=== PATIENT | female | born 1975 | race Caucasian/White ===

== ENCOUNTER 2020-03-14 10:36 | Outpatient (CLI) | payer OTHER, SELFPAY ==
--- NOTE | ~2020-03-14 | MR_ITS ---
EXAMINATION: MR ankle RT wo con DATE: 03/14/2020 11:46 INDICATION: Posterior tibial tendinitis. TECHNIQUE: Magnetic resonance imaging (MRI) of the right ankle was performed without intravenous cont rast. Sequences included sagittal PD-weighted FS FSE, sagittal PD-weighted FSE, coronal PD-weighted F S FSE, coronal PD-weighted FSE, axial PD-weighted FS FSE, and axial PD-weighted FSE. COMPARISON: Right foot MRI 01/29/2019 FINDINGS: Medial ankle ligaments: The superficial and deep components of the deltoid ligament are intact. Lateral ankle ligaments: The anterior and posterior talofibular ligaments, calcaneofibular ligament, and anterior and posterio r tibiofibular ligaments are normal. Tendons: There is mild peroneus brevis tendinopathy. The anterior ankle tendons are normal. There is a partial tear of posterior tibial tendon at its distal attachment. There is mild tenosynovitis of posterior t ibial tendon. The Achilles tendon is normal. Plantar fascia: Normal. There is an enthesophyte at the calcaneal attachment. Bones/other: Bone alignment is normal. No fracture. Talar dome is normal. Fluid: There is no joint effusion. IMPRESSION: 1. Partial tear and mild tenosynovitis of posterior tibial tendon. Reviewed, dictated and finalized at location A. ANIC/WELDER
== END 2020-03-14 10:37 | disposition home or self-care (01) ==
LOC: ANHIMG 10:38
PROVIDERS: PCP Internal Medicine; Visit Provider Podiatrist Foot & Ankle Surgery
DX: M76.821 Posterior tibial tendinitis, right leg (principal); S86.811A Strain of other muscle(s) and tendon(s) at lower leg level, right leg, initial encounter
CPT/HCPCS: 73721

== ENCOUNTER → 2020-05-17 16:51 | Outpatient (CLI) | payer OTHER, SELFPAY ==
--- NOTE | ~2020-05-17 | MM_ITS ---
EXAMINATION: MM screening zay BI w [place] HISTORY: . TECHNIQUE: Craniocaudal and mediolateral oblique 3-D tomosynthesis images were obtained and synthetic 2-D images were generated. CAD analysis was submitted and interpreted. COMPARISON: 07/23/2017, 04/13/2016, 10/27/2014 bilateral digital screening mammogram examinations BREAST PARENCHYMAL COMPOSITION: There are scattered areas of fibroglandular density. FINDINGS: There is no evidence of suspicious mass, calcification, or architectural distortion to sugg est malignancy in either breast. There has been no suspicious interval change. IMPRESSION: 1. No mammographic evidence of malignancy. 2. Recommend routine screening mammography in one year. BI-RADS Category 1: Negative Reviewed, dictated and finalized at location A. [employer] P[employer]IATRICIAN
== END ==
PROVIDERS: PCP Internal Medicine; Visit Provider Obstetrics & Gynecology
DX: Z12.31 Encounter for screening mammogram for malignant neoplasm of breast (principal)
CPT/HCPCS: 77063; 77067

== ENCOUNTER 2020-07-07 07:27 | Outpatient (CLI) | payer OTHER, SELFPAY ==
--- NOTE | ~2020-07-07 | US_ITS ---
EXAMINATION: US thyroid EXAM DATE: 07/07/2020 07:53 INDICATION: Goiter. TECHNIQUE: Multiple grayscale and Doppler images of the thyroid were obtained (by a technologist who performed the scan) and subsequently reviewed. Individual nodules and recommendations may be reporte d in accordance with TI-RADS system as designated by the 2017 ACR White Paper TI-RADS committee. The re is no prior study for comparison. FINDINGS: The right thyroid lobe measures 4.0 x 1.6 x 1.3 cm, the left measuring 4.5 x 1.4 x 1.3 cm. Mildly dif fusely heterogeneous thyroid echogenicity with several small nodules. The largest thyroid nodule is in the left thyroid lobe inferiorly measuring 1.0 x 0.9 x 0.7 cm, predo minantly solid (2 points), hypoechoic (2 points), wider than tall, smooth well defined margin, withou t echogenic foci, category TR4 for this nodule. Most likely benign. IMPRESSION: 1. Mild thyromegaly. 2. Several small nodules; recommend one-year follow-up ultrasound. Reviewed, dictated and finalized at location B. METRY TECH
== END 2020-07-07 07:28 | disposition home or self-care (01) ==
PROVIDERS: PCP Internal Medicine; Visit Provider Nurse Practitioner Family
DX: E04.9 Nontoxic goiter, unspecified (principal); E04.2 Nontoxic multinodular goiter
CPT/HCPCS: 76536

== ENCOUNTER 2021-10-21 12:44 | Outpatient (CLI) | payer OTHER, SELFPAY ==
--- NOTE | ~2021-10-21 | US_ITS ---
EXAMINATION: US thyroid DATE: 10/21/2021 13:37 INDICATION: Nontoxic single thyroid nodule TECHNIQUE: Multiple ultrasound images of the thyroid were obtained. COMPARISON: None. FINDINGS: The right thyroid lobe measures 4.1 x 1.6 x 1.5 cm. The left thyroid lobe measures 4.5 x 1.5 x 1.5 c m. 6 mm wider than tall solid hypoechoic nodule with ill-defined margins at the deep right thyroid ( TI-RADS 4, moderately suspicious , FNA if >=1.5 cm, annual followup is >=1 cm). Additional 10 mm red d hypoechoic wider than tall nodule with smooth and ill-defined margins at the inferior left thyroid also TI RADS 4. Diffuse mild heterogeneous echogenicity with coarsened echotexture throughout the thy roid but with normal vascular flow on color Doppler. IMPRESSION: 1. A couple, small TI RADS 4 thyroid nodules, the larger measuring 1 cm for which annual follow-up wo uld be recommended. Reviewed, dictated and finalized at location B. IMPRESSION: 1. A couple, small TI RADS 4 thyroid nodules, the larger measuring 1 cm for whi ch annual follow-up would be recommended.
== END 2021-10-21 12:45 | disposition home or self-care (01) ==
PROVIDERS: PCP Internal Medicine; Visit Provider Nurse Practitioner
DX: E04.2 Nontoxic multinodular goiter (principal)
CPT/HCPCS: 76536

== ENCOUNTER 2022-02-17 00:11 | Day surgery (SDC) | payer OTHER, SELFPAY ==
[2022-02-03 14:08] VITALS: BMI 50.1
[2022-02-17 09:30] LABS: Glucose Point of Care 151 mg/dl (65-105)
[2022-02-17 09:37] VITALS: BP 146/87; PULSE 85; RESP 18; TEMP 36.2; O2SAT 97
--- NOTE | 2022-02-17 09:41 | WPDANESEPPF ---
Anes - Initial Pre Proc Eval Procedure: Operation Date: 02/17/22 10:30 Proposed Procedures p Esophagogastroduodenoscopy - Juan Alberto Raya MD Date/Time: 02/17/22 09:41 Surgeon: Juan Alberto Raya MD Pre Op Diagnosis: dysphagia Patient Data Age: 46 Gender: F Height: 1.68 m Weight: 147.9 kg Last Vital Signs Temp 97.1 F L 02/17/22 09:37 Pulse 85 02/17/22 09:37 Resp 18 02/17/22 09:37 BP 146/87 H 02/17/22 09:37 Pulse Ox 97 02/17/22 09:37 O2 Del Method Room Air 02/17/22 09:37 Allergies Allergy/AdvReac Type Severity Reaction Status Date / Time levofloxacin Allergy Mild Other Verified 02/17/22 09:35 sulfamethoxazole Allergy Mild Other Verified 02/17/22 09:35 trimethoprim Allergy Mild Other Verified 02/17/22 09:35 Home Medications Medication Instructions Recorded Confirmed Type aspirin 81 mg tablet,delayed 81 mg PO DAILY 02/03/22 02/17/22 History release (Adult Low Dose Aspirin) celecoxib 200 mg capsule (Celebrex) 200 mg PO DAILY 02/03/22 02/17/22 History dapagliflozin 10 mg tablet 10 mg PO DAILY 02/03/22 02/17/22 History (Farxiga) glimepiride 4 mg tablet (Amaryl) 8 mg PO DAILY 02/03/22 02/17/22 History hydroxychloroquine 200 mg tablet 400 mg PO DAILY 02/03/22 02/17/22 History (Plaquenil) insulin degludec 200 unit/mL (3 80 unit subcut HS 02/03/22 02/17/22 History mL) subcutaneous pen (Tresiba FlexTouch U-200 insulin) levothyroxine 50 mcg tablet 50 mcg PO DAILY 02/03/22 02/17/22 History (Unithroid) losartan 25 mg tablet (Cozaar) 50 mg PO DAILY 02/03/22 02/17/22 History metformin 500 mg tablet,extended 2,000 mg PO DAILY 02/03/22 02/17/22 History release 24 hr pantoprazole 40 mg tablet,delayed 80 mg PO DAILY 02/03/22 02/17/22 History release rosuvastatin 20 mg tablet 20 mg PO DAILY 02/03/22 02/17/22 History spironolactone 25 mg tablet 100 mg PO DAILY 02/03/22 02/17/22 History Laboratory Tests 02/17/22 09:27 POC Capillary Glucose 151 mg/dl H mg/dl (65-105) Patient hx anesthesia problems: none Family hx anesthesia problems: none Results Review: All pre-operative results and documents have been reviewed as part of the pre-operative evaluation. PMFSH Family History Family History (System 03/10/19 @ 12:30 by Preethi Jackson) Other Depression Diabetes mellitus Family history of alcoholism Family history of attention deficit hyperactivity disorder (ADHD) Family history of blood dyscrasia Family history of cardiovascular disease Family history of obesity Social History Social History (System 03/10/19 @ 12:30 by Preethi Jackson) Smoking status: Never smoker Alcohol intake: current Drinks per week: 2 Substance use: never Substance use type: does not use Living arrangements: with family Spiritual care concerns: No Anes - Eval Final PreProcedure Day of Procedure 02/17/22 09:41 Patient weight: super morbidly obese Heart: regular rate and rhythm Lungs: clear to auscultation Airway: Mallampati scale class III Neurological: alert and oriented Last oral intake: >/= 8 hours ASA classification: IV Emergent: no Anesthetic plan: proceed Anesthesia type and monitoring: general GIVS and standard monitoring Results Review: All pre-operative results and documents have been reviewed as part of the pre-operative evaluation. Informed Consent: The patient's anesthetic plan and its attendant risks and benefits were discussed with the patient/family/POA. Questions were solicited and answers provided to the satisfaction of the patient/family/POA.
[2022-02-17] MEDS: LACTATED RINGERS 1,000 ML 150 ML IV CONT (09:44)
[2022-02-17] MEDS: SIMETHICONE ORAL SUSPENSION 20 MG/0.3 ML 30 ML BOTTLE 0.6 ML IRRIGATION (10:36)
--- NOTE | 2022-02-17 10:38 | PM.HPGS ---
History of Present Illness History of Present Illness Consent: Risks, benefits, and alternatives have been discussed and questions answered. Patient agrees to proceed with procedure. Chief complaint: dysphagia Narrative: Mag Luz is a 46 year old female Complains of difficulty swallowing. She states solid foods will hang up in the mid substernal portion the chest. She does have a long history of acid reflux. She currently treats this with pantoprazole daily. Family history noncontributory. Review of Systems Review of Systems: Review of systems noncontributory. [facility] Family History Family History (System 03/10/19 @ 12:30 by Preethi Jackson) Other Depression Diabetes mellitus Family history of alcoholism Family history of attention deficit hyperactivity disorder (ADHD) Family history of blood dyscrasia Family history of cardiovascular disease Family history of obesity Social History Social History (System 03/10/19 @ 12:30 by Preethi Jackson) Smoking status: Never smoker Alcohol intake: current Drinks per week: 2 Substance use: never Substance use type: does not use Living arrangements: with family Spiritual care concerns: No Meds Home Medications and Allergies Home Medications Medication Instructions Recorded Confirmed Type aspirin 81 mg tablet,delayed 81 mg PO DAILY 02/03/22 02/17/22 History release (Adult Low Dose Aspirin) celecoxib 200 mg capsule (Celebrex) 200 mg PO DAILY 02/03/22 02/17/22 History dapagliflozin 10 mg tablet 10 mg PO DAILY 02/03/22 02/17/22 History (Farxiga) glimepiride 4 mg tablet (Amaryl) 8 mg PO DAILY 02/03/22 02/17/22 History hydroxychloroquine 200 mg tablet 400 mg PO DAILY 02/03/22 02/17/22 History (Plaquenil) insulin degludec 200 unit/mL (3 80 unit subcut HS 02/03/22 02/17/22 History mL) subcutaneous pen (Tresiba FlexTouch U-200 insulin) levothyroxine 50 mcg tablet 50 mcg PO DAILY 02/03/22 02/17/22 History (Unithroid) losartan 25 mg tablet (Cozaar) 50 mg PO DAILY 02/03/22 02/17/22 History metformin 500 mg tablet,extended 2,000 mg PO DAILY 02/03/22 02/17/22 History release 24 hr pantoprazole 40 mg tablet,delayed 80 mg PO DAILY 02/03/22 02/17/22 History release rosuvastatin 20 mg tablet 20 mg PO DAILY 02/03/22 02/17/22 History spironolactone 25 mg tablet 100 mg PO DAILY 02/03/22 02/17/22 History Allergies Allergy/AdvReac Type Severity Reaction Status Date / Time levofloxacin Allergy Mild Other Verified 02/17/22 09:35 sulfamethoxazole Allergy Mild Other Verified 02/17/22 09:35 trimethoprim Allergy Mild Other Verified 02/17/22 09:35 Vital Signs Vital Signs - 24 hr 02/17/22 09:37 Temperature 97.1 F L Pulse Rate 85 Respiratory Rate 18 Blood Pressure 146/87 H Pulse Oximetry 97 Oxygen Delivery Room Air Exam Narrative: Physical exam reveals patient to be alert. Vital signs stable. HEENT exam is unremarkable. Patient is anicteric. Lungs are clear. Heart without murmur. Abdomen is obese. Bowel sounds are present soft nontender with no organomegaly. Assessment and Plan Assessment and plan (1) Dysphagia: Code(s): R13.10 - Dysphagia, unspecified Status: Acute Assessment and Plan: Patient complains of difficulty swallowing. Previously has had a Schatzki's ring. Plan is for EGD assess more thoroughly I understand she has a history of GE reflux currently maintained on pantoprazole. Would recommend pantoprazole 40mg p.o. daily along with anti-reflux measures.
[2022-02-17 10:42] VITALS: BP 136/93; PULSE 97; RESP 22; O2SAT 98
[2022-02-17 10:48] VITALS: BP 142/100; PULSE 93; RESP 19; O2SAT 97
[2022-02-17 10:58] VITALS: BP 145/91; PULSE 88; RESP 19; O2SAT 97
[2022-02-17 11:08] LABS: Glucose Point of Care 132 mg/dl (65-105)
== END 2022-02-17 11:12 | disposition home or self-care (01) ==
PROVIDERS: PCP Internal Medicine; Visit Provider Internal Medicine Gastroenterology
PROC: 0DJ08ZZ Inspection of Upper Intestinal Tract, Via Natural or Artificial Opening Endoscopic (ICD-10-PCS; CPT 43235; principal; 2022-02-17 10:30)
DX: K22.2 Esophageal obstruction (principal); K21.9 Gastro-esophageal reflux disease without esophagitis; Z79.84 Long term (current) use of oral hypoglycemic drugs; Z79.82 Long term (current) use of aspirin; Z79.4 Long term (current) use of insulin; E66.01 Morbid (severe) obesity due to excess calories; Z68.43 Body mass index [BMI] 50.0-59.9, adult
CPT/HCPCS: 43235; 43450; 82948; J2704; J7120

== ENCOUNTER 2022-05-03 16:56 | Outpatient (CLI) | payer OTHER, SELFPAY ==
--- NOTE | ~2022-05-03 | XR_ITS ---
Clinical Indication: Cough PA and lateral views of the chest: Comparison: 03/19/2018 Findings: The lungs are clear, without evidence of focal consolidation or pleural effusion. Cardiome diastinal silhouette is within normal limits. Bones and soft tissues are unremarkable. Impression: Normal chest. Reviewed, dictated and finalized at [facility]. [employer] Impression: Normal chest.
== END 2022-05-03 16:57 | disposition home or self-care (01) ==
PROVIDERS: PCP Internal Medicine; Visit Provider Internal Medicine
DX: R05.9 Cough, unspecified (principal)
CPT/HCPCS: 71046

== ENCOUNTER 2022-07-16 14:07 | Emergency (ER) | payer OTHER, SELFPAY ==
--- NOTE | ~2022-07-16 | XR_ITS ---
EXAMINATION: XR chest 2V Exam Date/Time: 07/16/2022 14:32 CDT HISTORY: WHEEZING, SOB, HX BRONCHITIS Comparison: 05/03/2022. RESULT: Lines, tubes, and devices: None. Lungs and pleura: Multifocal segmental and subsegmental airspace disease in the bilateral lower lung s. Cardiomediastinal silhouette: Stable. Other: No acute osseous or upper abdominal finding. IMPRESSION: Bilateral lower lung airspace disease may represent pneumonia in the appropriate clinical context. Reviewed, dictated and finalized at location K. IMPRESSION: Bilateral lower lung airspace disease may represent pneumonia in the appropriat e clinical context.
[2022-07-16 14:13] VITALS: BP 161/81; PULSE 119; RESP 16; TEMP 37.4; O2SAT 97
[2022-07-16 14:19] VITALS: BP 161/81; PULSE 119; RESP 16; TEMP 37.4; O2SAT 97
--- NOTE | 2022-07-16 14:19 | ED.URI ---
HPI - URI/Sore Throat General Chief Complaint: Upper Respiratory Infection Stated Complaint: fever,shortness or breath Time Seen by Provider: 07/16/22 14:21 Source: patient Mode of arrival: ambulatory Limitations: no limitations History of Present Illness HPI Narrative: 47 y/o female with hx RA, DM, DVT, presented for c/o cough for 5 days. Endorses dizziness with movement, fever, wheezing, and sob with exertion. Temp up to 102 yesterday. Had a severe headache 2 days ago which is improving. Cough is nonproductive. Taking Dayquil/Nyquil, mucinex for symptoms. Took negative covid test at the onset of symptoms. Endorses recent air travel, returned 7 days ago. Denies sinus congestion, n/v/d. Related Data Home Medications Medication Instructions Recorded Confirmed aspirin 81 mg tablet,delayed 81 mg PO DAILY 02/03/22 02/17/22 release (Adult Low Dose Aspirin) celecoxib 200 mg capsule (Celebrex) 200 mg PO DAILY 02/03/22 02/17/22 dapagliflozin 10 mg tablet 10 mg PO DAILY 02/03/22 02/17/22 (Farxiga) glimepiride 4 mg tablet (Amaryl) 8 mg PO DAILY 02/03/22 02/17/22 hydroxychloroquine 200 mg tablet 400 mg PO DAILY 02/03/22 02/17/22 (Plaquenil) insulin degludec 200 unit/mL (3 80 unit subcut HS 02/03/22 02/17/22 mL) subcutaneous pen (Tresiba FlexTouch U-200 insulin) levothyroxine 50 mcg tablet 50 mcg PO DAILY 02/03/22 02/17/22 (Unithroid) losartan 25 mg tablet (Cozaar) 50 mg PO DAILY 02/03/22 02/17/22 metformin 500 mg tablet,extended 2,000 mg PO DAILY 02/03/22 02/17/22 release 24 hr pantoprazole 40 mg tablet,delayed 80 mg PO DAILY 02/03/22 02/17/22 release rosuvastatin 20 mg tablet 20 mg PO DAILY 02/03/22 02/17/22 spironolactone 25 mg tablet 100 mg PO DAILY 02/03/22 02/17/22 Allergies Allergy/AdvReac Type Severity Reaction Status Date / Time levofloxacin Allergy Mild Other Verified 07/16/22 14:14 sulfamethoxazole Allergy Mild Other Verified 07/16/22 14:14 trimethoprim Allergy Mild Other Verified 07/16/22 14:14 Review of Systems Review of Systems: CONSTITUTIONAL: Reportss body aches, fever, chills, sweats. EYES: Denies visual changes, redness, or discharge. ENT: Denies rhinorrhea, congestion, sore throat, or otalgia. CARDIOVASCULAR: Denies chest pain, palpitations, or edema. RESPIRATORY: Reports cough, sob, wheezing. GASTROINTESTINAL: Denies abdominal pain, nausea, vomiting, or diarrhea. SKIN: Denies rash, itching, or wounds. MUSCULOSKELETAL: Denies back pain, joint pain, or myalgia. NEUROLOGIC: Denies numbness, tingling, or weakness. All systems reviewed & are unremarkable except as noted in HPI and below PMFSH Past Medical History Medical History Diabetes DVT (deep venous thrombosis) Factor V deficiency Rheumatoid arthritis Family History Family History Other Depression Diabetes mellitus Family history of alcoholism Family history of attention deficit hyperactivity disorder (ADHD) Family history of blood dyscrasia Family history of cardiovascular disease Family history of obesity Social History Social History Smoking status: Never smoker Alcohol intake: current Drinks per week: 2 Substance use: never Substance use type: does not use Living arrangements: with family Spiritual care concerns: No Comments At time of signature, I have reviewed and agree with nursing past medical, surgical, social and family history unless otherwise noted. Please see nursing chart for further information. There is no relevant family history pertinent to the presenting complaint Exam Narrative: GENERAL: ill-appearing, nontoxic in no acute distress. EYES: EOMI. No redness or drainage. Conjunctivae normal. ENT: Mucous membranes pink and moist. No rhinorrhea. TMs normal bilaterally. Throat normal. Uvula midline. NECK: N
[2022-07-16] MEDS: IPRATROPIUM BR 0.02% INH SOLN 0.5 MG/2.5 ML VIAL INHALATION (14:40)
[2022-07-16] MEDS: ALBUTEROL SULFATE NEB 2.5 MG/3 ML INH INHALATION (14:45)
[2022-07-16 16:10] VITALS: PULSE 118; RESP 21; O2SAT 98
--- NOTE | 2022-07-16 17:15 | PC.NURSE ---
1520- pt completed treatment and wheezing has softened. pt states that she only feels slightly better at present. pt understands that we are still awaiting the official report of cxr from radiologist
== END 2022-07-16 16:10 | disposition home or self-care (01) ==
PROVIDERS: Emergency Provider Nurse Practitioner Family; PCP Internal Medicine
DX: J18.9 Pneumonia, unspecified organism (principal); Z20.822 Contact with and (suspected) exposure to COVID-19; E11.9 Type 2 diabetes mellitus without complications; M06.9 Rheumatoid arthritis, unspecified; D68.51 Activated protein C resistance; Z86.73 Personal history of transient ischemic attack (TIA), and cerebral infarction without residual deficits
CPT/HCPCS: 71046; 87426; 94640; 99213; C9803; G0463

== ENCOUNTER 2022-07-16 16:39 | Inpatient (IN) | payer OTHER, SELFPAY ==
[2022-07-16] VITALS (18 sets, daily range): BP systolic 145–149; BP diastolic 82–98; PULSE 101–118; RESP 16–31; TEMP 37.6–38; O2SAT 95–97; BMI 52.6
--- NOTE | 2022-07-16 16:54 | ECG_ITS ---
Measurements Intervals Ten Sleep Rate: 117 P: 22 [place]: 108 QRS: 47 QRSD: 91 T: 49 QT: 310 QTc: 434 Interpretive Statements SINUS TACHYCARDIA WITH SHORT [place] INTERVAL BASELINE ARTIFACT- I, II, III ABNORMAL ECG NO PREVIOUS ECG AVAILABLE FOR COMPARISON Electronically Signed On 07-16-2022 17:28:42 CDT by Adrian Santiago D.O.
[2022-07-16 17:31] LABS: Basophils Percent Auto 0.2 % (0.2-1.2); Eosinophils Percent Auto 0.2 % (0-4.4); Hematocrit 39.1 % (37.0-47.0); Hemoglobin 12.3 g/dL (12.0-15.0); Immature Granulocyte Absolute 0.01 K/mm3 (0.00-0.031); Immature Granulocyte Percent A 0.2 % (0-0.5); Lymphocytes Absolute Auto 0.61 K/mm3 (0.9-3.2); Lymphocytes Percent Auto 12.9 % (18.3-44.2); Mean Corpuscular HGB Conc 31.5 g/dl (32-36); Mean Corpuscular Volume 79.5 fl (80-100); Mean Platelet Volume 10.9 fl (7.4-10.4); Monocytes Absolute Auto 0.3 K/mm3 (0.1-0.6); Monocytes Percent Auto 5.3 % (2.6-8.5); Neutrophils Absolute Auto 3.8 K/mm3 (1.3-6.7); Neutrophils Percent Auto 81.2 % (45.5-73.1); Platelet Count Result 227 k/mm3 (150-375); Red Blood Count 4.92 M/mm3 (4.2-5.4); White Blood Count 4.7 K/mm3 (4.5-10.0)
[2022-07-16 17:41] LABS: Lactic Acid Reflex 1.1 mmol/L (0.7-2.0)
[2022-07-16 17:44] LABS: Alanine Aminotransferase 22 U/L (6-35); Albumin Level 4.4 g/dL (3.5-5.1); Alkaline Phosphatase 89 U/L (38-126); Anion Gap 10 mmol/L (8-16); Aspartate Amino Transferase 27 U/L (14-36); Bilirubin,Total 0.4 mg/dL (0.2-1.3); Blood Urea Nitrogen 7 mg/dL (7-17); Calcium 8.8 mg/dL (8.4-10.2); Carbon Dioxide 25 mmol/L (22-30); Chloride 100 mmol/L (98-107); Estimated CRCL calculation 166 ml/min; Estimated Glomerular Filt Rate > 60; Glucose 160 mg/dL (65-110); Potassium 3.9 mmol/L (3.4-5.0); Sodium 135 mmol/L (137-145)
--- NOTE | 2022-07-16 17:44 | ED.GENADULT ---
HPI - General Adult General Chief complaint: Shortness of Breath/Dyspnea Stated complaint: pnemonia Time Seen by Provider: 07/16/22 17:31 History of Present Illness HPI narrative: Patient is 47 years old white female came to the emergency room because of fever, and nonproductive cough over the last 5 days. Patient referred to our emergency room from urgent care with a diagnosis of bilateral pneumonia. 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 Last Tylenol was 8 hours ago. Related Data Home Medications Medication Instructions Recorded Confirmed aspirin 81 mg tablet,delayed 81 mg PO DAILY 02/03/22 02/17/22 release (Adult Low Dose Aspirin) celecoxib 200 mg capsule (Celebrex) 200 mg PO DAILY 02/03/22 02/17/22 dapagliflozin 10 mg tablet 10 mg PO DAILY 02/03/22 02/17/22 (Farxiga) glimepiride 4 mg tablet (Amaryl) 8 mg PO DAILY 02/03/22 02/17/22 hydroxychloroquine 200 mg tablet 400 mg PO DAILY 02/03/22 02/17/22 (Plaquenil) insulin degludec 200 unit/mL (3 80 unit subcut HS 02/03/22 02/17/22 mL) subcutaneous pen (Tresiba FlexTouch U-200 insulin) levothyroxine 50 mcg tablet 50 mcg PO DAILY 02/03/22 02/17/22 (Unithroid) losartan 25 mg tablet (Cozaar) 50 mg PO DAILY 02/03/22 02/17/22 metformin 500 mg tablet,extended 2,000 mg PO DAILY 02/03/22 02/17/22 release 24 hr pantoprazole 40 mg tablet,delayed 80 mg PO DAILY 02/03/22 02/17/22 release rosuvastatin 20 mg tablet 20 mg PO DAILY 02/03/22 02/17/22 spironolactone 25 mg tablet 100 mg PO DAILY 02/03/22 02/17/22 Allergies Allergy/AdvReac Type Severity Reaction Status Date / Time levofloxacin Allergy Mild Other Verified 07/16/22 18:09 sulfamethoxazole Allergy Mild Other Verified 07/16/22 18:09 trimethoprim Allergy Mild Other Verified 07/16/22 18:09 Review of Systems Review of Systems: All systems reviewed & are unremarkable except as noted in HPI and below PMFSH Past Medical History Medical History Diabetes DVT (deep venous thrombosis) Factor V deficiency Rheumatoid arthritis Family History Family History Other Depression Diabetes mellitus Family history of alcoholism Family history of attention deficit hyperactivity disorder (ADHD) Family history of blood dyscrasia Family history of cardiovascular disease Family history of obesity Social History Social History Smoking status: Never smoker Alcohol intake: current Drinks per week: 2 Substance use: never Substance use type: does not use Living arrangements: with family Spiritual care concerns: No Exam Narrative: General appearance: Well-developed, well-nourished Skin: Normal color Head: Normocephalic, nontraumatic Eyes: Clear conjunctiva ENT: Oropharynx normal, ears normal, nose normal Neck: Supple, nontender Chest and respiratory: Diffuse rhonchi and wheezing bilaterally Heart: Regular rate/rhythm Abdomen: Soft, nontender, no organomegaly, quiet bowel sounds Vascular: Normal peripheral pulses, normal capillary refill. Musculoskeletal: Normal range of motion, nontender back Neurologic: Alert and oriented ?3, [employer] is normal as tested, no gross motor deficit Course Vital Signs Vital signs: Vital Signs Temperature 37.6 C 07/16/22 16:49 Pulse Rate 118 H 07/16/22 16:49 Respiratory Rate 18 07/16/22 16:49 Blood Pressure 149/91 H 07/16/22 16:49 Pulse Oximetry 97 07/16/22 16:49 Temperature 37.7 C H 07/16/22 18:06 Pulse Rate 118 H 07/16/22 18:10 Respiratory Rate
[2022-07-16 18:12] LABS: CRP 7.3 mg/dL (<1.0)
[2022-07-16 18:16] LABS: Alveolar/Arterial O2 Gradient 35.4 mmHg; Base Excess ABG 1.1 mEq/l (+/-2.0); Fractional Inspired Oxygen 21 %; HCO3 ABG 24.5 mEq/l (22.0-26.0); Oxygen Content ABG 16.1 %vol (16.0-22.0); Oxygen Saturation ABG 95.5 % (95.0-100.0); Oxyhemoglobin 93.5 % THb (90.0-100.0); PO2 ABG 72.4 mmHg (80.0-100.0); PO2 FiO2 Ratio Arterial Blood 3.45 %; Total Hemoglobin 12.2 g/dL (12.0-18.0); pH ABG 7.463 (7.350-7.450)
[2022-07-16 18:18] LABS: Device ROOM AIR; Modified Allen's Test Pass; Site Drawn LEFT RADIAL
--- NOTE | 2022-07-16 19:16 | PC.NURSE ---
Unsuccessful IV attempt. Charge nurse aware, will attempt for another line.
[2022-07-16 19:37] LABS: Influenza A QL RT-PCR Negative (Negative); Influenza B QL RT-PCR Negative (Negative); SARS-CoV-2 RNA PCR Negative
--- NOTE | 2022-07-16 19:54 | PC.NURSE ---
Second set of cultures successful from charge weigher ultrasound IV placement. Will start antibiotics at this time.
--- NOTE | 2022-07-16 20:14 | PC.NURSE ---
Report called to [facility].
--- NOTE | 2022-07-16 20:34 | ADMGEN ---
This patient, Mag Luz, was admitted to Medical Room 349-01. Patient/family oriented to hospital policies and general routines including ID bracelet, bed and alarms, visiting hours, pain management, procedures, bathroom and other care routines, personal items, smoking policy, room service/diet, and visiting hours. Information on how to activate the Rapid Response Team has been discussed. Patient/Family are encouraged to report perceived risks to care and to ask questions if they do not understand what they are told or what they should do.
[2022-07-16] MEDS: ALBUTEROL SULFATE NEB 2.5 MG/3 ML INH INHALATION (21:14)
--- NOTE | 2022-07-16 22:00 | PM.IMHP ---
H&P: HPI History of Present Illness Date/Time: 07/16/22 22:00 Chief Complaint: Fever and cough. Narrative: This is a very pleasant 47-year-old female with insulin-dependent diabetes, rheumatoid arthritis, hypothyroidism, hypertension, dyslipidemia, and history of DVT (heterozygous for factor 5 Leiden) who presented to the emergency department from urgent care for evaluation of fever and cough. Patient provides the following history. She was at a conference in [place] last week and returned home on Sunday in her usual state of health. She started to feel unwell on Sunday with generalized headache, fever to 102? on , nonproductive cough, rattling in the chest, dyspnea on exertion, and nausea.. She has been taking DayQuil, NyQuil, and Mucinex for her symptoms but they linger. She denies significant sinus congestion, sore throat, pleuritic pain, palpitations, vomiting, and significant diarrhea. She was seen in urgent care today and tested negative for COVID. Chest x-ray showed evidence of bilateral pneumonia and given her risk factors she was directed to the emergency department. Pertinent labs include a WBC count of 4.7 and a CRP of 7.3. Due to her multiple comorbidities, she is being admitted for IV antibiotics and monitoring overnight. Review of Systems Review of Systems: Twelve systems were reviewed and are negative except for as per HPI. [facility] Past Medical History Medical History (Updated 07/16/22 @ 23:08 by Omaira Aguiar PA-C) Deep venous thrombosis Attributed to hormone use in the setting of factor 5 Leiden mutation, heterozygous. Factor 5 Leiden mutation, heterozygous Gastroesophageal reflux disease Noreen's disease Hypertension Hypothyroidism Insulin dependent type 2 diabetes mellitus Morbid obesity Polycystic ovarian syndrome Rheumatoid arthritis Surgical History Surgical History (Updated 07/16/22 @ 22:25 by Omaira Aguiar PA-C) History of cardiac radiofrequency ablation History of section Family History Family History Other Depression Diabetes mellitus Family history of alcoholism Family history of attention deficit hyperactivity disorder (ADHD) Family history of blood dyscrasia Family history of cardiovascular disease Family history of obesity Social History Social History (Updated 07/16/22 @ 23:06 by Omaira Aguiar PA-C) Social History: Surrogate medical decision maker: Reza Sumner, spouse. Code status: Full code. Smoking status: Never smoker Alcohol intake: never Drinks per week: 2 Substance use: never Substance use type: does not use Lack of Transportation: No Lack of Food: Never True Current Housing: I Have Housing Concerned About Future Housing: No Difficulty Paying Gas/Electric Bills: No Difficulty Paying for Meds: No Currently Unemployed: No Education: Master's Degree or Higher Difficulty w/ Childcare or Family Care: No Living arrangements: with family Additional living arrangements comments: Lives with spouse and children in [place]. Additional occupation/education comments: [employer]. Spiritual care concerns: No Meds Home Medications and Allergies Home Medications Medication Instructions Recorded Confirmed Type aspirin 81 mg tablet,delayed 81 mg PO DAILY 02/03/22 07/16/22 History release (Adult Low Dose Aspirin) celecoxib 200 mg capsule (Celebrex) 100 mg PO BID 02/03/22 07/16/22 History glimepiride 4 mg tablet (Amaryl) 8 mg PO DAILY 02/03/22 07/16/22 History hydroxychloroquine 200 mg tablet 400 mg PO DAILY 02/03/22 07/16/22 History (Plaquenil) insulin degludec 200 unit/mL (3 80 unit subcut HS 02/03/22 07/16/22 History mL) subcutaneous pen (Tresiba FlexTouch U-200 insulin) levothyroxine 50 mcg tablet 50 mcg PO DAILY 02/03/22 07/16/22 History (Unithroid) losartan 25 mg tablet (Cozaar) 50 mg PO DAILY 02/03/22 07/16/22 H
[2022-07-16 22:10] LABS: Glucose Point of Care 144 mg/dl (65-105)
[2022-07-16] MEDS: SODIUM CHLORIDE 0.9% IV 1,000 ML 125 ML IV CONT (22:12)
[2022-07-17] VITALS (15 sets, daily range): BP systolic 132–155; BP diastolic 78–96; PULSE 91–105; RESP 14–24; TEMP 36.7–39.3; O2SAT 93–97
[2022-07-17] MEDS: ACETAMINOPHEN 325 MG TABLET 650 MG PO (00:49)
[2022-07-17] MEDS: guaiFENesin 12 HR 600 MG TABCR 1200 MG PO ×3 (00:57→20:47)
[2022-07-17] MEDS: ALBUTEROL SULFATE NEB 2.5 MG/3 ML INH INHALATION ×4 (03:23→21:40)
[2022-07-17] MEDS: IPRATROPIUM BR 0.02% INH SOLN 0.5 MG/2.5 ML VIAL INHALATION ×4 (03:23→21:40)
[2022-07-17 05:12] LABS: Hematocrit 35.8 % (37.0-47.0); Hemoglobin 11.1 g/dL (12.0-15.0); Mean Corpuscular Hemoglobin 24.9 pg (26-34); Mean Corpuscular Volume 80.4 fl (80-100); Mean Platelet Volume 10.4 fl (7.4-10.4); Platelet Count Result 197 k/mm3 (150-375); Red Blood Count 4.45 M/mm3 (4.2-5.4); Red Cell Distribution Width 17.1 % (11.5-14.5); White Blood Count 3.3 K/mm3 (4.5-10.0)
[2022-07-17 05:23] LABS: Alanine Aminotransferase 19 U/L (6-35); Alkaline Phosphatase 73 U/L (38-126); Anion Gap 4 mmol/L (8-16); Aspartate Amino Transferase 27 U/L (14-36); Bilirubin,Total 0.5 mg/dL (0.2-1.3); Blood Urea Nitrogen 7 mg/dL (7-17); CRP 8.3 mg/dL (<1.0); Calcium 8.6 mg/dL (8.4-10.2); Carbon Dioxide 29 mmol/L (22-30); Chloride 102 mmol/L (98-107); Estimated CRCL calculation 172 ml/min; Estimated Glomerular Filt Rate > 60; Glucose 203 mg/dL (65-110); Magnesium 1.7 mg/dL (1.6-2.3); Potassium 3.8 mmol/L (3.4-5.0); Sodium 135 mmol/L (137-145)
[2022-07-17] MEDS: LEVOTHYROXINE SODIUM 50 MCG TABLET PO (05:23)
[2022-07-17 06:29] LABS: Procalcitonin 0.1 ng/mL
--- NOTE | 2022-07-17 08:30 | PM.IMPN ---
Progress Note: A&P Assessment and Plan (1) Pneumonia: Code(s): J18.9 - Pneumonia, unspecified organism Status: Acute Assessment and Plan: The patient presented to the emergency department from urgent care for evaluation after she was found to have bilateral pneumonia. Chest x-ray shows bilateral infiltrates representing pneumonia. Low grade fever with low white count at 3.3; she is immunocompromised (insulin-dependent diabetic, rheumatoid arthritis on DMARD). Azithromycin and ceftriaxone have been started Attempt sputum for culture Continue [facility] and at [facility] to help minimize secretions. Check urinary antigens. Duo nebs scheduled. Procalcitonin 0.1 Elevated CRP at 8.3. Not surprising due to patient's rheumatic disease. (2) Insulin dependent type 2 diabetes mellitus: Code(s): E11.9 - Type 2 diabetes mellitus without complications; Z79.4 - assisted (current) use of insulin Status: Acute Assessment and Plan: Initiate sliding scale insulin Accu-Cheks, and hypoglycemic protocol. Check hemoglobin A1c. (3) Rheumatoid arthritis: Code(s): M06.9 - Rheumatoid arthritis, unspecified Status: Chronic Assessment and Plan: After discussing with the patient, will hold hydroxychloroquine for a couple of days. Plan Patient's chronic conditions include rheumatoid arthritis, insulin-dependent diabetes, hypertension, obesity, hypothyroidism. Home medications will be reviewed and resumed as appropriate. Patient is immunocompromise with RA and insulin-dependent diabetes TSH within normal limits Blood pressure stable Subjective Date/time seen: 07/17/22 08:30 Interval history: Patient doing well sitting in the bed. She is still having cough and shortness of breath. Shortness of breath occurs at rest and with activity. Patient was experiencing fevers, chills and body aches but since arriving to hospital for this has improved. She denies chest pain, nausea and vomiting and diarrhea. Patient denies any chronic lung diseases such as asthma /COPD and also denies smoking. Review of Systems Review of Systems: All systems reviewed & are unremarkable except as noted in HPI and below Exam Narrative: GENERAL: Comfortable, no acute distress HENMT: moist mucous membranes EYES: EOM intact b/l NECK: no lymphadenopathy RESPIRATORY: Diffuse crackles and wheezing CARDIO: RRR GI: soft, nontender, bowel sounds present SKIN: no rashes EXTREMITIES: no edema, redness or tenderness Objective Data Vital Signs Vital Signs: Vital Signs - 24 hr 07/16/22 16:49 07/16/22 18:06 07/16/22 18:10 Temperature 99.6 F 99.8 F H Pulse Rate 118 H 115 H 118 H Respiratory Rate 18 18 Blood Pressure 149/91 H Pulse Oximetry 97 96 Oxygen Delivery Room Air 07/16/22 18:41 07/16/22 18:45 07/16/22 19:03 Temperature Pulse Rate 115 H 115 H Respiratory Rate 16 17 Blood Pressure Pulse Oximetry 97 97 96 Oxygen Delivery 07/16/22 19:15 07/16/22 19:32 07/16/22 19:49 Temperature Pulse Rate 118 H 117 H 114 H Respiratory Rate 16 31 H 24 H Blood Pressure Pulse Oximetry 96 96 Oxygen Delivery 07/16/22 19:50 07/16/22 20:41 07/16/22 21:13 Temperature Pulse Rate 114 H 103 H Respiratory Rate 18 20 Blood Pressure 149/98 H Pulse Oximetry 96 95 Oxygen Delivery Room Air 07/16/22 21:19 07/16/22 21:31 07/16/22 21:26 Temperature Pulse Rate 101 H 107 H Respiratory Rate 20 20 Blood Pressure 145/82 H Pulse Oximetry Oxygen Delivery 07/16/22 21:39 07/16/22 19:51 07/16/22 20:00 Temperature 100.4 F H Pulse Rate 116 H 116 H Respiratory Rate 23 H 21 H Blood Pressure Pulse Oximetry 96 95 Oxygen Delivery 07/16/22 20:15 07/17/22 00:37 07/17/22 00:49 Temperature 102.7 F H 101.7 F H Pulse Rate 113 H Respiratory Rate 17 Blood Pressure Pulse Oximetry 97 Oxygen Delivery
[2022-07-17 08:53] LABS: Glucose Point of Care 189 mg/dl (65-105)
[2022-07-17] MEDS: ASPIRIN 81 MG ENTERIC TABLET PO (09:56)
[2022-07-17] MEDS: CELECOXIB 100 MG CAPSULE PO ×2 (09:57→16:51)
[2022-07-17] MEDS: GLIMEPIRIDE 2 MG TABLET 8 MG PO (09:57)
[2022-07-17] MEDS: LOSARTAN POTASSIUM 25 MG TABLET 50 MG PO (09:57)
[2022-07-17] MEDS: ENOXAPARIN 40 MG/0.4 ML SYRINGE SUB-Q (09:57)
[2022-07-17] MEDS: SPIRONOLACTONE 25 MG TABLET 50 MG PO (09:57)
[2022-07-17] MEDS: PANTOPRAZOLE 40 MG TABLET PO ×2 (09:57→20:47)
[2022-07-17 12:27] LABS: Glucose Point of Care 214 mg/dl (65-105)
[2022-07-17] MEDS: INSULIN ASPART (*BKC) 100 UNITS/ML SUB-Q ×2 (12:47→18:11)
[2022-07-17 16:58] LABS: Glucose Point of Care 225 mg/dl (65-105)
[2022-07-17] MEDS: ROSUVASTATIN 10 MG TABLET 20 MG PO (20:47)
[2022-07-17] MEDS: MELATONIN 5 MG TABLET 10 MG PO (20:47)
[2022-07-17] MEDS: INSULIN GLARGINE (*BKC) 100 UNITS/ML 40 UNITS SUB-Q (20:57)
[2022-07-17 20:59] LABS: Glucose Point of Care 300 mg/dl (65-105)
[2022-07-18] VITALS (12 sets, daily range): BP systolic 133–139; BP diastolic 60–72; PULSE 89–106; RESP 17–24; TEMP 36.1–36.6; O2SAT 91–94
[2022-07-18] MEDS: IPRATROPIUM BR 0.02% INH SOLN 0.5 MG/2.5 ML VIAL INHALATION ×4 (03:00→19:41)
[2022-07-18] MEDS: ALBUTEROL SULFATE NEB 2.5 MG/3 ML INH INHALATION ×4 (03:00→19:41)
[2022-07-18 05:47] LABS: Basophils Percent Auto 0.5 % (0.2-1.2); Hematocrit 34.8 % (37.0-47.0); Hemoglobin 10.6 g/dL (12.0-15.0); Immature Granulocyte Absolute 0.03 K/mm3 (0.00-0.031); Immature Granulocyte Percent A 0.8 % (0-0.5); Lymphocytes Absolute Auto 0.95 K/mm3 (0.9-3.2); Lymphocytes Percent Auto 24.2 % (18.3-44.2); Mean Corpuscular HGB Conc 30.5 g/dl (32-36); Mean Corpuscular Hemoglobin 24.8 pg (26-34); Mean Corpuscular Volume 81.3 fl (80-100); Mean Platelet Volume 10.6 fl (7.4-10.4); Monocytes Absolute Auto 0.3 K/mm3 (0.1-0.6); Monocytes Percent Auto 8.4 % (2.6-8.5); Neutrophils Absolute Auto 2.6 K/mm3 (1.3-6.7); Neutrophils Percent Auto 65.1 % (45.5-73.1); Platelet Count Result 192 k/mm3 (150-375); Red Blood Count 4.28 M/mm3 (4.2-5.4); Red Cell Distribution Width 17.1 % (11.5-14.5); White Blood Count 3.9 K/mm3 (4.5-10.0)
[2022-07-18 06:07] LABS: Alanine Aminotransferase 19 U/L (6-35); Albumin Level 3.8 g/dL (3.5-5.1); Alkaline Phosphatase 74 U/L (38-126); Anion Gap 6 mmol/L (8-16); Aspartate Amino Transferase 28 U/L (14-36); Bilirubin,Total 0.4 mg/dL (0.2-1.3); Blood Urea Nitrogen 5 mg/dL (7-17); CRP 7.6 mg/dL (<1.0); Calcium 8.2 mg/dL (8.4-10.2); Carbon Dioxide 27 mmol/L (22-30); Chloride 103 mmol/L (98-107); Estimated CRCL calculation 209 ml/min; Estimated Glomerular Filt Rate > 60; Glucose 226 mg/dL (65-110); Potassium 3.8 mmol/L (3.4-5.0); Sodium 136 mmol/L (137-145)
[2022-07-18] MEDS: LEVOTHYROXINE SODIUM 50 MCG TABLET PO (06:22)
[2022-07-18 08:25] LABS: Glucose Point of Care 225 mg/dl (65-105)
[2022-07-18] MEDS: CELECOXIB 100 MG CAPSULE PO ×2 (08:31→17:44)
[2022-07-18] MEDS: ENOXAPARIN 40 MG/0.4 ML SYRINGE SUB-Q (08:31)
[2022-07-18] MEDS: ASPIRIN 81 MG ENTERIC TABLET PO (08:31)
[2022-07-18] MEDS: GLIMEPIRIDE 2 MG TABLET 8 MG PO (08:31)
[2022-07-18] MEDS: guaiFENesin 12 HR 600 MG TABCR 1200 MG PO ×2 (08:31→20:51)
[2022-07-18] MEDS: PANTOPRAZOLE 40 MG TABLET PO ×2 (08:32→20:51)
[2022-07-18] MEDS: LOSARTAN POTASSIUM 25 MG TABLET 50 MG PO (08:32)
[2022-07-18] MEDS: SPIRONOLACTONE 25 MG TABLET 50 MG PO (08:32)
[2022-07-18] MEDS: INSULIN ASPART (*BKC) 100 UNITS/ML SUB-Q ×2 (08:42→12:36)
[2022-07-18 11:56] LABS: Glucose Point of Care 297 mg/dl (65-105)
--- NOTE | 2022-07-18 13:55 | PM.IMPN ---
Progress Note: A&P Assessment and Plan (1) Pneumonia: Code(s): J18.9 - Pneumonia, unspecified organism Status: Acute Assessment and Plan: The patient presented to the emergency department from urgent care for evaluation after she was found to have bilateral pneumonia. Chest x-ray shows bilateral infiltrates representing pneumonia. Low grade fever with low white count at 3.3; she is immunocompromised (insulin-dependent diabetic, rheumatoid arthritis on DMARD). Azithromycin and ceftriaxone have been started Attempt sputum for culture Continue [facility] and at [facility] to help minimize secretions. Check urinary antigens. Duo nebs scheduled. Procalcitonin 0.1 Elevated CRP at 8.3. Not surprising due to patient's rheumatic disease. (2) Insulin dependent type 2 diabetes mellitus: Code(s): E11.9 - Type 2 diabetes mellitus without complications; Z79.4 - nursing home (current) use of insulin Status: Acute Assessment and Plan: Initiate sliding scale insulin Accu-Cheks, and hypoglycemic protocol. Check hemoglobin A1c. (3) Rheumatoid arthritis: Code(s): M06.9 - Rheumatoid arthritis, unspecified Status: Chronic Assessment and Plan: After discussing with the patient, will hold hydroxychloroquine for a couple of days. Plan Patient's chronic conditions include rheumatoid arthritis, insulin-dependent diabetes, hypertension, obesity, hypothyroidism. Home medications will be reviewed and resumed as appropriate. Patient is immunocompromise with RA and insulin-dependent diabetes TSH within normal limits Blood pressure stable Subjective Date/time seen: 07/18/22 13:55 Interval history: Patient is feeling slightly better than yesterday. Patient's loved one at bedside. She still struggles with cough and shortness of breath. Her labs are looking much better today although she still appears pretty sick. Patient really wants to go home but due to her cough, lingering shortness of breath and coarse breath sounds I believe it is best for her to receive 1 more day of IV antibiotics before she is discharged. Patient is agreeing upon this plan. Patient no longer having fever or requiring fever reducing medication. Review of Systems Review of Systems: All systems reviewed & are unremarkable except as noted in HPI and below Exam Narrative: GENERAL: Comfortable, no acute distress HENMT: moist mucous membranes EYES: EOM intact b/l NECK: no lymphadenopathy RESPIRATORY: Diffuse crackles and wheezing CARDIO: RRR GI: soft, nontender, bowel sounds present SKIN: no rashes EXTREMITIES: no edema, redness or tenderness Objective Data Vital Signs Vital Signs: Vital Signs - 24 hr 07/17/22 14:00 07/17/22 21:23 07/17/22 21:42 Temperature 98.6 F 98.1 F Pulse Rate 100 105 H 94 Respiratory Rate 14 20 19 Blood Pressure 148/82 H 132/96 H Pulse Oximetry 97 94 Oxygen Delivery 07/17/22 20:00 07/18/22 03:01 07/18/22 03:12 Temperature Pulse Rate 94 89 92 Respiratory Rate 19 20 20 Blood Pressure Pulse Oximetry 94 Oxygen Delivery Room Air 07/18/22 05:22 07/18/22 08:14 07/18/22 08:10 Temperature 97.8 F Pulse Rate 98 93 Respiratory Rate 17 24 H Blood Pressure 139/72 Pulse Oximetry 92 94 Oxygen Delivery Room Air 07/18/22 08:26 07/18/22 08:00 Temperature Pulse Rate 94 Respiratory Rate 22 H Blood Pressure Pulse Oximetry Oxygen Delivery Room Air Intake/Output Intake/Output: Intake & Output 07/15/22 07/16/22 07/17/22 07/18/22 23:59 23:59 23:59 23:59 Intake Total 50 1870 1430 Output Total 1300 3600 Balance 50 570 -2170 Meds/Results Medications: Active Medications Generic Name Dose Route Start Last Admin Trade Name Freq PRN Reason Stop Dose Admin Acetaminophen 650 mg 07/16/22 22:27 07/17/22 00:49 Acetaminophen 325 Mg Tablet PO 650 mg Q6H PRN Administration Mild Pain (1
[2022-07-18] MEDS: ACETAMINOPHEN 325 MG TABLET 650 MG PO (15:14)
[2022-07-18 17:09] LABS: Glucose Point of Care 193 mg/dl (65-105)
[2022-07-18] MEDS: MELATONIN 5 MG TABLET 10 MG PO (20:52)
[2022-07-18 20:59] LABS: Glucose Point of Care 262 mg/dl (65-105)
[2022-07-18] MEDS: INSULIN GLARGINE (LANTUS) 1,000 UNITS/10 ML VIAL 80 UNITS SUB-Q (21:28)
[2022-07-19] VITALS (14 sets, daily range): BP systolic 127–150; BP diastolic 75–84; PULSE 85–105; RESP 16–22; TEMP 36.2–36.6; O2SAT 91–97
[2022-07-19] MEDS: IPRATROPIUM BR 0.02% INH SOLN 0.5 MG/2.5 ML VIAL INHALATION ×4 (03:06→22:20)
[2022-07-19] MEDS: ALBUTEROL SULFATE NEB 2.5 MG/3 ML INH INHALATION ×4 (03:06→22:21)
[2022-07-19] MEDS: LEVOTHYROXINE SODIUM 50 MCG TABLET PO (05:54)
[2022-07-19 05:56] LABS: Basophils Percent Auto 0.5 % (0.2-1.2); Eosinophils Absolute Auto 0.1 K/mm3 (0-0.3); Eosinophils Percent Auto 1.7 % (0-4.4); Hematocrit 34.5 % (37.0-47.0); Hemoglobin 10.7 g/dL (12.0-15.0); Immature Granulocyte Absolute 0.03 K/mm3 (0.00-0.031); Immature Granulocyte Percent A 0.7 % (0-0.5); Lymphocytes Absolute Auto 1.44 K/mm3 (0.9-3.2); Lymphocytes Percent Auto 35.2 % (18.3-44.2); Mean Corpuscular Hemoglobin 25.2 pg (26-34); Mean Corpuscular Volume 81.4 fl (80-100); Mean Platelet Volume 10.7 fl (7.4-10.4); Monocytes Absolute Auto 0.3 K/mm3 (0.1-0.6); Monocytes Percent Auto 7.1 % (2.6-8.5); Neutrophils Absolute Auto 2.2 K/mm3 (1.3-6.7); Neutrophils Percent Auto 54.8 % (45.5-73.1); Platelet Count Result 196 k/mm3 (150-375); Red Blood Count 4.24 M/mm3 (4.2-5.4); Red Cell Distribution Width 17.1 % (11.5-14.5); White Blood Count 4.1 K/mm3 (4.5-10.0)
[2022-07-19 06:15] LABS: Alanine Aminotransferase 21 U/L (6-35); Albumin Level 3.7 g/dL (3.5-5.1); Alkaline Phosphatase 74 U/L (38-126); Anion Gap 7 mmol/L (8-16); Aspartate Amino Transferase 29 U/L (14-36); Bilirubin,Total 0.4 mg/dL (0.2-1.3); Blood Urea Nitrogen 5 mg/dL (7-17); Calcium 8.5 mg/dL (8.4-10.2); Carbon Dioxide 26 mmol/L (22-30); Chloride 103 mmol/L (98-107); Estimated CRCL calculation 209 ml/min; Estimated Glomerular Filt Rate > 60; Glucose 188 mg/dL (65-110); Potassium 3.6 mmol/L (3.4-5.0); Sodium 136 mmol/L (137-145)
[2022-07-19 07:33] LABS: Anisocytosis 1+ (NORMAL); Atypical Lymphocytes Present; Ovalocytes 1+ (NORMAL); Platelet Estimate Adequate (Adequate); Schistocytes None Seen (NORMAL)
[2022-07-19 08:54] LABS: Glucose Point of Care 200 mg/dl (65-105)
[2022-07-19] MEDS: CELECOXIB 100 MG CAPSULE PO ×2 (09:14→17:42)
[2022-07-19] MEDS: SPIRONOLACTONE 25 MG TABLET 50 MG PO (09:14)
[2022-07-19] MEDS: ASPIRIN 81 MG ENTERIC TABLET PO (09:14)
[2022-07-19] MEDS: LOSARTAN POTASSIUM 25 MG TABLET 50 MG PO (09:14)
[2022-07-19] MEDS: ENOXAPARIN 40 MG/0.4 ML SYRINGE SUB-Q (09:14)
[2022-07-19] MEDS: guaiFENesin 12 HR 600 MG TABCR 1200 MG PO ×2 (09:14→20:34)
[2022-07-19] MEDS: GLIMEPIRIDE 2 MG TABLET 8 MG PO (09:14)
[2022-07-19] MEDS: PANTOPRAZOLE 40 MG TABLET PO ×2 (09:14→20:34)
[2022-07-19 12:54] LABS: Glucose Point of Care 209 mg/dl (65-105)
[2022-07-19] MEDS: INSULIN ASPART (*BKC) 100 UNITS/ML SUB-Q (13:02)
--- NOTE | 2022-07-19 13:22 | PM.IMPN ---
Progress Note: A&P Assessment and Plan (1) Pneumonia: Qualifiers: Pneumonia type: due to unspecified organism Laterality: bilateral Lung location: lower lobe of lung Qualified Code(s): J18.9 - Pneumonia, unspecified organism Code(s): J18.9 - Pneumonia, unspecified organism Status: Acute Assessment and Plan: The patient presented to the emergency department from urgent care for evaluation after she was found to have bilateral pneumonia. Chest x-ray shows bilateral infiltrates representing pneumonia. Low grade fever with low white count at 3.3; she is immunocompromised (insulin-dependent diabetic, rheumatoid arthritis on DMARD). Azithromycin and ceftriaxone, 1st dose given 07/16 Attempt sputum for culture Continue Mucinex and at [facility] to help minimize secretions. urinary antigens pending Duo nebs scheduled. Procalcitonin 0.1 Elevated CRP at 8.3. May also be due to rheumatoid arthritis Trend CBC and repeat chest x-ray in the morning May have a component of acute bronchitis. Will check RSV PCR (2) Insulin dependent type 2 diabetes mellitus: Code(s): E11.9 - Type 2 diabetes mellitus without complications; Z79.4 - [facility] (current) use of insulin Status: Acute Assessment and Plan: Initiate sliding scale insulin Accu-Cheks, and hypoglycemic protocol. hemoglobin A1c 8% Continue long-acting insulin Lantus 80 units at bedtime, Tresiba is not on formulary at our facility. Continue glimepiride. Hold metformin while inpatient (3) Rheumatoid arthritis: Code(s): M06.9 - Rheumatoid arthritis, unspecified Status: Chronic Assessment and Plan: After discussing with the patient, will hold hydroxychloroquine for a couple of days. (4) Hypothyroidism: Code(s): E03.9 - Hypothyroidism, unspecified Status: Chronic Assessment and Plan: Continue levothyroxine (5) Factor 5 Leiden mutation, heterozygous: Code(s): D68.51 - Activated protein C resistance Status: Chronic Assessment and Plan: Left DVT 2006. Patient had been treated with Eliquis up to 2-3 years ago and then transitioned to aspirin is followed by Hematology outpatient. Currently on Lovenox for DVT prophylaxis and baby aspirin continued (6) Polycystic ovarian syndrome: Code(s): E28.2 - Polycystic ovarian syndrome Status: Chronic Assessment and Plan: Continues spironolactone and finerenone Monitor renal function Plan Code status: Full code Disposition patient is from home. Diet consistent carb Antibiotic day: 4 of 7 Time Spent With Patient Time with patient: 25 - 35 minutes Subjective Date/time seen: 07/19/22 13:22 Interval history: She still c/o shortness of breath with exertion, pleuritic chest pain, right upper abdomen pain, and minimal sputum. No fevers overnight. Review of Systems Review of Systems: All systems reviewed & are unremarkable except as noted in HPI and below Exam Narrative: GENERAL: Comfortable, no acute distress HEENT: Normocephalic, pupils equal and round, EOM intact, moist mucous membranes, oropharynx unremarkable and tonsils not visualized NECK: Supple without no lymphadenopathy RESPIRATORY: Respirations shallow and nonlabored rest, coarse lung sounds in all dodd with inspiratory and expiratory wheezing appreciated. CARDIO: Normal S1-S2 regular rate and rhythm. No murmurs gallops or rubs GI: soft, obese, tender right upper quadrant right rib 9-10 region, bowel sounds present. No guarding SKIN: no rashes or open wounds. No diaphoresis. Warm and dry EXTREMITIES: no edema, redness or tenderness. Grossly normal range of motion all extremities. Radial and dorsalis pedis pulses +2 bilaterally Objective Data Vital Signs Vital Signs: Vital Signs - 24 hr 07/18/22 14:45 07/18/22 14:59 07/18/22 15:43 Temperature 96.9 F L Pulse Rate 91 94 106 H Respiratory Rate 20 20 18 Blood
[2022-07-19 17:36] LABS: Glucose Point of Care 183 mg/dl (65-105)
[2022-07-19] MEDS: LIDOCAINE 5% PATCH 1 PATCH TRANSDERM (17:42)
[2022-07-19 18:40] LABS: Pneumococcal Antigen Urine Not Detected (Not Detected)
[2022-07-19 20:24] LABS: RSV RNA, RT-PCR Negative (Negative)
[2022-07-19] MEDS: MELATONIN 5 MG TABLET 10 MG PO (20:34)
[2022-07-19] MEDS: INSULIN GLARGINE (LANTUS) 1,000 UNITS/10 ML VIAL 80 UNITS SUB-Q (20:43)
[2022-07-19 21:40] LABS: Glucose Point of Care 220 mg/dl (65-105)
[2022-07-20] MEDS: ALBUTEROL SULFATE NEB 2.5 MG/3 ML INH INHALATION ×2 (02:39→07:58)
[2022-07-20 02:40] VITALS: PULSE 84; RESP 18
[2022-07-20] MEDS: IPRATROPIUM BR 0.02% INH SOLN 0.5 MG/2.5 ML VIAL INHALATION ×2 (02:40→07:58)
[2022-07-20 02:46] VITALS: PULSE 86; RESP 18
[2022-07-20 04:15] VITALS: BP 130/75; PULSE 90; RESP 16; TEMP 36.5; O2SAT 96
[2022-07-20] MEDS: LEVOTHYROXINE SODIUM 50 MCG TABLET PO (05:53)
[2022-07-20 06:41] LABS: Basophils Percent Auto 0.5 % (0.2-1.2); Eosinophils Absolute Auto 0.1 K/mm3 (0-0.3); Eosinophils Percent Auto 2.3 % (0-4.4); Hematocrit 34.4 % (37.0-47.0); Hemoglobin 10.8 g/dL (12.0-15.0); Immature Granulocyte Absolute 0.05 K/mm3 (0.00-0.031); Immature Granulocyte Percent A 1.1 % (0-0.5); Lymphocytes Percent Auto 36.8 % (18.3-44.2); Mean Corpuscular HGB Conc 31.4 g/dl (32-36); Mean Corpuscular Hemoglobin 25.3 pg (26-34); Mean Corpuscular Volume 80.6 fl (80-100); Mean Platelet Volume 10.2 fl (7.4-10.4); Monocytes Absolute Auto 0.4 K/mm3 (0.1-0.6); Neutrophils Absolute Auto 2.2 K/mm3 (1.3-6.7); Neutrophils Percent Auto 51.3 % (45.5-73.1); Platelet Count Result 199 k/mm3 (150-375); Red Blood Count 4.27 M/mm3 (4.2-5.4); Red Cell Distribution Width 16.8 % (11.5-14.5); White Blood Count 4.4 K/mm3 (4.5-10.0)
[2022-07-20 06:59] LABS: Alanine Aminotransferase 23 U/L (6-35); Albumin Level 3.7 g/dL (3.5-5.1); Alkaline Phosphatase 75 U/L (38-126); Anion Gap 6 mmol/L (8-16); Aspartate Amino Transferase 31 U/L (14-36); Bilirubin,Total 0.4 mg/dL (0.2-1.3); Blood Urea Nitrogen 6 mg/dL (7-17); CRP 3.4 mg/dL (<1.0); Calcium 8.3 mg/dL (8.4-10.2); Carbon Dioxide 27 mmol/L (22-30); Chloride 103 mmol/L (98-107); Estimated CRCL calculation 208 ml/min; Estimated Glomerular Filt Rate > 60; Glucose 214 mg/dL (65-110); Potassium 3.9 mmol/L (3.4-5.0); Sodium 136 mmol/L (137-145)
[2022-07-20 07:44] LABS: Procalcitonin 0.1 ng/mL
[2022-07-20 07:58] VITALS: PULSE 92; RESP 18; O2SAT 96
[2022-07-20 08:16] VITALS: PULSE 90; RESP 18
[2022-07-20 08:32] LABS: Glucose Point of Care 222 mg/dl (65-105)
[2022-07-20] MEDS: guaiFENesin 12 HR 600 MG TABCR 1200 MG PO (08:46)
[2022-07-20] MEDS: metFORMIN HCL 500 MG TABLET 1000 MG PO (08:46)
[2022-07-20] MEDS: SPIRONOLACTONE 25 MG TABLET 50 MG PO (08:46)
[2022-07-20] MEDS: LOSARTAN POTASSIUM 25 MG TABLET 50 MG PO (08:46)
[2022-07-20] MEDS: ENOXAPARIN 40 MG/0.4 ML SYRINGE SUB-Q (08:47)
[2022-07-20] MEDS: CELECOXIB 100 MG CAPSULE PO (08:47)
[2022-07-20] MEDS: GLIMEPIRIDE 2 MG TABLET 8 MG PO (08:47)
[2022-07-20] MEDS: ASPIRIN 81 MG ENTERIC TABLET PO (08:47)
[2022-07-20] MEDS: PANTOPRAZOLE 40 MG TABLET PO (08:47)
[2022-07-20] MEDS: LIDOCAINE 5% PATCH 1 PATCH TRANSDERM (08:49)
[2022-07-20] MEDS: INSULIN ASPART (*BKC) 100 UNITS/ML SUB-Q (08:50)
--- NOTE | 2022-07-20 10:11 | P.DS_ITS ---
DS: Admitting Diagnosis Discharge Date 07/20/2022 Admitting Diagnosis Pneumonia, unspecified organism Type 2 diabetes mellitus without complications Essential (primary) hypertension Rheumatoid arthritis, unspecified Immunodeficiency, unspecified DS: Discharge Diagnosis Discharge Diagnosis (1) Pneumonia: Qualifiers: Laterality: bilateral Lung location: lower lobe of lung Pneumonia type: due to unspecified organism Qualified Code(s): J18.9 - Pneumonia, uns pecified organism Code(s): J18.9 - Pneumonia, unspecified organism Status: Acute Assessment and Plan: The patient presented to the emergency department from urgent care for evaluation after she was found to have bilateral pneumonia. * Chest x-ray shows bilateral infiltrates * Patient with low grade fever, low white count at 3.3; she is immunocompromised (insulin-dependent diabetic, rheumatoid arthritis on DMARD). * Treated with Azithromycin and ceftriaxone, 1st dose given 07/16 * Attempt sputum for culture with results showing mixed tang * Treated with Mucinex and at [facility] to help minimize secretions. * Legionella and pneumococcal urine antigens negative. mycoplasma pneumo not elevated. * Influenza A/B, RSV and covid19 negative. * Scheduled Duonebs scheduled Q6 hours. Discharged on albuterol MDI. * Procalcitonin 0.1 * Elevated CRP at 8.3 and repeat CRP improved 3.4 * Patient completed 5 days of azithromycin IV/p.o. With last dose 07/20/2022. * Patient transitioned from Rocephin IV (4 doses given) to cefuroxime 500 mg p.o. b.i.d. to be continued for 6 more days. Extended antibiotic course was given due to patient's immunocompromised state and concurrent use of prednisone. Patient does have anaphylaxis allergy to Levaquin. * Patient with spO2 at rest and ambulating 95% RA (2) Acute bronchitis: Code(s): J20.9 - Acute bronchitis, unspecified Status: Acute Assessment and Plan: Patient with notable wheezing somewhat improved with breathing treatments however patient continued to have some shortness of breath with activity. * trial prednisone 40 mg p.o. daily x5 days, 1st dose 07/20/22. Discussed potential complications with patient such as lowered immune system that can contribute to infections and elevated blood glucose levels. Patient would like to proceed with a short course of steroids. * Patient has albuterol MDI previously prescribed for respiratory infections. This is still full with significant number of puffs available. Spacer was supplied. * Patient was instructed on use as needed for shortness of breath or wheezing. * P.r.n. Tessalon Perles given at discharge. (3) Insulin dependent type 2 diabetes mellitus: Code(s): E11.9 - Type 2 diabetes mellitus without complications; Z79.4 - terminal manager (current) use of insulin Status: Acute Assessment and Plan: Initiate sliding scale insulin, Accu-Cheks, and hypoglycemic protocol. * hemoglobin A1c 8% * Continue long-acting insulin Lantus 80 units at bedtime, Tresiba is not on formulary at our facility. * Continued glimepiride. * Resumed metformin while inpatient (4) Rheumatoid arthritis: Qualifiers: Rheumatoid arthritis location: unspecified site Rheumatoid factor presence: unspecified presence Qualified Code(s): M06.9 - Rheumatoid arthritis, unspecified Code(s): M06.9 - Rheumatoid arthritis, unspecified Status: Chronic Assessment and Plan: hydroxychloroquine held while receiving antibiotics (5) Hypothyroidism: Qualifiers: Hypothyroidism type: acqu
--- NOTE | 2022-07-20 10:11 | PM.DS ---
DS: Admitting Diagnosis Discharge Date 07/20/2022 Admitting Diagnosis Pneumonia, unspecified organism Type 2 diabetes mellitus without complications Essential (primary) hypertension Rheumatoid arthritis, unspecified Immunodeficiency, unspecified DS: Discharge Diagnosis Discharge Diagnosis (1) Pneumonia: Qualifiers: Laterality: bilateral Lung location: lower lobe of lung Pneumonia type: due to unspecified organism Qualified Code(s): J18.9 - Pneumonia, unspecified organism Code(s): J18.9 - Pneumonia, unspecified organism Status: Acute Assessment and Plan: The patient presented to the emergency department from urgent care for evaluation after she was found to have bilateral pneumonia. Chest x-ray shows bilateral infiltrates Patient with low grade fever, low white count at 3.3; she is immunocompromised (insulin-dependent diabetic, rheumatoid arthritis on DMARD). Treated with Azithromycin and ceftriaxone, 1st dose given 07/16 Attempt sputum for culture with results showing mixed tang Treated with Mucinex and at [facility] to help minimize secretions. Legionella and pneumococcal urine antigens negative. mycoplasma pneumo not elevated. Influenza A/B, RSV and covid19 negative. Scheduled Duonebs scheduled Q6 hours. Discharged on albuterol MDI. Procalcitonin 0.1 Elevated CRP at 8.3 and repeat CRP improved 3.4 Patient completed 5 days of azithromycin IV/p.o. With last dose 07/20/2022. Patient transitioned from Rocephin IV (4 doses given) to cefuroxime 500 mg p.o. b.i.d. to be continued for 6 more days. Extended antibiotic course was given due to patient's immunocompromised state and concurrent use of prednisone. Patient does have anaphylaxis allergy to Levaquin. Patient with spO2 at rest and ambulating 95% RA (2) Acute bronchitis: Code(s): J20.9 - Acute bronchitis, unspecified Status: Acute Assessment and Plan: Patient with notable wheezing somewhat improved with breathing treatments however patient continued to have some shortness of breath with activity. trial prednisone 40 mg p.o. daily x5 days, 1st dose 07/20/22. Discussed potential complications with patient such as lowered immune system that can contribute to infections and elevated blood glucose levels. Patient would like to proceed with a short course of steroids. Patient has albuterol MDI previously prescribed for respiratory infections. This is still full with significant number of puffs available. Spacer was supplied. Patient was instructed on use as needed for shortness of breath or wheezing. P.r.n. Tessalon Perles given at discharge. (3) Insulin dependent type 2 diabetes mellitus: Code(s): E11.9 - Type 2 diabetes mellitus without complications; Z79.4 - manager terminal (current) use of insulin Status: Acute Assessment and Plan: Initiate sliding scale insulin, Accu-Cheks, and hypoglycemic protocol. hemoglobin A1c 8% Continue long-acting insulin Lantus 80 units at bedtime, Tresiba is not on formulary at our facility. Continued glimepiride. Resumed metformin while inpatient (4) Rheumatoid arthritis: Qualifiers: Rheumatoid arthritis location: unspecified site Rheumatoid factor presence: unspecified presence Qualified Code(s): M06.9 - Rheumatoid arthritis, unspecified Code(s): M06.9 - Rheumatoid arthritis, unspecified Status: Chronic Assessment and Plan: hydroxychloroquine held while receiving antibiotics (5) Hypothyroidism: Qualifiers: Hypothyroidism type: acquired Qualified Code(s): E03.9 - Hypothyroidism, unspecified Code(s): E03.9 - Hypothyroidism, unspecified Status: Chronic Assessment and Plan: Continue levothyroxine (6) Factor 5 Leiden mutation, heterozygous: Code(s): D68.51 - Activated protein C resistance Status: Chronic Assessment and Plan: Left DVT 2006. Patient had been [place]
--- NOTE | 2022-07-20 12:21 | PC.NURSE ---
Walked with patient down the butler while monitoring her 02 level. Pt was able to maintain a 95% oxygen level while ambulating.
[2022-07-20] MEDS: CEFUROXIME AXETIL 250 MG TABLET 500 MG PO (12:32)
[2022-07-20] MEDS: predniSONE 20 MG TABLET 40 MG PO (12:32)
[2022-07-20] MEDS: AZITHROMYCIN 250 MG TABLET 500 MG PO (12:32)
[2022-07-20 12:33] LABS: Glucose Point of Care 140 mg/dl (65-105)
[2022-07-20] MEDS: BENZONATATE 100 MG CAPSULE PO (12:34)
[2022-07-20 17:49] LABS: Mycoplasma IgM Antibody Titer 46 U/mL (<770)
[2022-07-21 03:11] LABS: Legionella pneumophila Ag Ur Not Detected (Not Detected)
== END 2022-07-20 12:50 | disposition home or self-care (01) | DRG 194 ==
LOC: ANHED 18:45 → ANH3MED 19:38
PROVIDERS: Internal Medicine Critical Care Medicine; Physician Assistant; Admitting Provider Internal Medicine; Emergency Provider Emergency Medicine; PCP Internal Medicine; Visit Provider Nurse Practitioner Family
DX: J18.9 Pneumonia, unspecified organism (principal); D68.51 Activated protein C resistance; Z68.43 Body mass index [BMI] 50.0-59.9, adult; J20.9 Acute bronchitis, unspecified; E66.01 Morbid (severe) obesity due to excess calories; Z20.822 Contact with and (suspected) exposure to COVID-19; I10 Essential (primary) hypertension; E11.9 Type 2 diabetes mellitus without complications; M06.9 Rheumatoid arthritis, unspecified; E03.9 Hypothyroidism, unspecified; E28.2 Polycystic ovarian syndrome; E78.5 Hyperlipidemia, unspecified; K21.9 Gastro-esophageal reflux disease without esophagitis; Z79.4 Long term (current) use of insulin; Z86.718 Personal history of other venous thrombosis and embolism; Z79.82 Long term (current) use of aspirin; Z79.84 Long term (current) use of oral hypoglycemic drugs
CPT/HCPCS: 36415; 36600; 80053; 82805; 82948; 83036; 83605; 83735; 84145; 84443; 85025; 85027; 86140; 86738; 87040; 87070; 87205; 87449; 87634; 87636; 87899; 93005; 94640; 94667; 94668; 96365; 96366; 96367; 96372; 96375; 99285; A9270; G0378; J0456; J0696; J1650; J1815; J7030; J7512

== ENCOUNTER 2022-07-27 16:57 | Outpatient (CLI) | payer OTHER, SELFPAY ==
--- NOTE | ~2022-07-27 | MR_ITS ---
MRI of the brain Clinical History: Right leg weakness Technique: Axial and sagittal T1-weighted images were acquired. These were followed by axial T2-weigh apollo, diffusion weighted, gradient, and FLAIR images. Findings: No abnormal signal seen in the brain parenchyma. No acute infarct, intracranial hemorrhage, or mass lesion. Ventricles and subarachnoid spaces are unremarkable. Orbits are unremarkable. Paranasal sinuses and m astoid air cells are clear. Major intracranial flow voids appear intact. Sagittal midline structures are intact. IMPRESSION: Unremarkable exam. Reviewed, dictated and finalized at location M. IMPRESSION: Unremarkable exam.
== END 2022-07-27 16:58 | disposition home or self-care (01) ==
PROVIDERS: PCP Internal Medicine; Visit Provider Internal Medicine
DX: G83.10 Monoplegia of lower limb affecting unspecified side (principal)
CPT/HCPCS: 70551

== ENCOUNTER 2022-08-22 12:11 | Outpatient (CLI) | payer OTHER, SELFPAY ==
--- NOTE | ~2022-08-22 | XR_ITS ---
EXAMINATION: XR hip RT min 2V DATE: 08/22/2022 12:35 INDICATION: Right hip pain TECHNIQUE: Two views of right hip were obtained. COMPARISON: None. FINDINGS: Bone alignment is normal. There is no fracture. The soft tissues are unremarkable. IMPRESSION: 1. No acute osseous abnormality. Reviewed, dictated and finalized at location L.
== END 2022-08-22 12:12 | disposition home or self-care (01) ==
PROVIDERS: PCP Internal Medicine; Visit Provider Internal Medicine
DX: M25.551 Pain in right hip (principal)
CPT/HCPCS: 73502

== ENCOUNTER 2022-09-26 10:00 | Outpatient (RCR) | payer OTHER, SELFPAY ==
--- NOTE | 2022-08-03 09:58 | PTOPEVAL1 ---
Assessment and note entered by Lance Cortez, PT, DPT Evaluation Information Assessment Status Evaluation Diagnosis R leg weakness Onset 1 month ago Subjective Information Pt states about a month ago she was out of town and did a lot of walking and has a slight pain in her R hip. Soon after that she was admitted to the hospital for double lung PNU and was admitted for 5 days and was pretty sedentary for about a week after that. She states she started to get altered sensations and numbness throughout her entire R leg, worse in the lower half, she states it feels like her leg is asleep. She reports having diabetic neuropathy but this feels different from that. A CVA and DVT were ruled out. She uses a straight cane for support prior to the start of this. She has a wheelchair that she uses intermittently for long distances. Reported Pain Level Pain Score 0: Self Report Assessment PT Clinical Summary Mag presents to therapy today for her initial evaluation with a diagnosis of R leg weakness. Today she demonstrates R hip and knee strength that is grossly 4/5, she demonstrates decreased plantarflexion strength marcie. She ambulates with a decreased gait speed and mild Trendelenburg pattern. She reports a dull sensation throughout her entire R leg without a flexion or extension movement bias. No testing today was able to alter her LE sensations. Skilled physical therapy services are indicated to improve her gait, RLE strength, and functional mobility. Plan of Care Interventions Electrical Stimulation,Gait Training,Hot Pack/Cold Pack,Manual Therapy,Neuro Re-education,Patient/ Caregiver Educati,Therapeutic Activities, Therapeutic Exercise PT Services Indicated Yes Treatment Frequency and 1x/wk for 4 wks Duration These treatments will address the objective and functional deficits as defined above. The patient will be advanced safely and appropriately in order for the patient to progress towards his/her prior level of function. Additional exercises will be introduced and as well as a comprehensive home exercise program upon discharge, if needed, ?to ensure carryover of functional gains achieved in the clinic. This treatment plan has been reviewed and agreement upon by the patient.
--- NOTE | 2022-08-31 15:21 | PTOPPROG ---
Assessment and note entered by Lance Cortez, PT, DPT Evaluation Information Assessment Status Progress Diagnosis R leg weakness Onset 1 month ago Subjective Information Pt states things are going okay , she states she is still having issues with pain. She states her R leg is still really weak and she is still having troubles with stairs. She reports she thinks her numbness is almost gone as well. She reports 0/10 pain at rest, and 7/10 at worst with movement. Assessment PT Clinical Summary Mag presents to therapy today for her progress report following 4 visits of skilled therapy to treat her diagnosis of R leg weakness. Today she demonstrates improved R hip strength but still decreased from her L side. She has tenderness at the insertion point of her R hip flexors and reports pain with passive stretching. She is progressing well towards her goals. She would like to continue her HEP IND for 1 month and then follow up as she will be out of town for the next 2 weeks. Plan of Care Interventions Electrical Stimulation,Gait Training,Hot Pack/Cold Pack,Manual Therapy,Neuro Re-education,Patient/ Caregiver Educati,Therapeutic Activities, Therapeutic Exercise PT Services Indicated Yes Treatment Frequency and to follow up in 1 month Duration These treatments will address the objective and functional deficits as defined above. The patient will be advanced safely and appropriately in order for the patient to progress towards his/her prior level of function. Additional exercises will be introduced and as well as a comprehensive home exercise program upon discharge, if needed, ?to ensure carryover of functional gains achieved in the clinic. This treatment plan has been reviewed and agreement upon by the patient.
--- NOTE | 2022-09-26 10:49 | PTOPPROG ---
Assessment and note entered by Lance Cortez, PT, DPT Evaluation Information Assessment Status Progress Diagnosis R leg weakness Onset 1 month ago Subjective Information Pt states her numbness is almost completely gone. She states her strength feels about equal to her uninvolved side. She states while strength and sensation is better her pain has remained almost unchanged. She has returned to water exercises without limitations. She reports 0/10 pain at rest , but 5/10 when getting dressed. Assessment PT Clinical Summary Mag presents to therapy today for her progress report following 5 visits of skilled therapy to treat her diagnosis of R leg weakness. Today she demonstrates improved R hip strength but still reports increased in pain with resisted R hip motion, and passive max hip flexion on R. She continues to report tenderness at the insertion of her hip flexor tendon. Her HEP was progressed and she plans to continue this while she is traveling for the next month. Will follow up with she returns if needed. Plan of Care Interventions Electrical Stimulation,Gait Training,Hot Pack/Cold Pack,Manual Therapy,Neuro Re-education,Patient/ Caregiver Educati,Therapeutic Activities, Therapeutic Exercise PT Services Indicated Yes Treatment Frequency and to follow up in 1 month Duration These treatments will address the objective and functional deficits as defined above. The patient will be advanced safely and appropriately in order for the patient to progress towards his/her prior level of function. Additional exercises will be introduced and as well as a comprehensive home exercise program upon discharge, if needed, ?to ensure carryover of functional gains achieved in the clinic. This treatment plan has been reviewed and agreement upon by the patient.
--- NOTE | 2022-10-23 11:03 | PTOPDC ---
Assessment and note entered by Lance Cortez, PT, DPT Evaluation Information Assessment Status Discharge - Pt Not Present Diagnosis R leg weakness Onset 1 month ago Subjective Information Pt called and cancelled her appointment today. She reports she is doing well and does not need to continue therapy at this time. Assessment PT Clinical Summary Mag completed 6 visits of therapy from to 09/26/22. She will be discharged at this time d/t good therapy progress. If she needs additional therapy at a later time she will need a new order.
== END 2022-10-23 11:19 | disposition home or self-care (01) ==
LOC: ANHGOSHPT 10:00
PROVIDERS: PCP Internal Medicine; Visit Provider Internal Medicine
DX: G83.10 Monoplegia of lower limb affecting unspecified side (principal)
CPT/HCPCS: 97110; 97112; 97140; 97162

== ENCOUNTER 2023-09-03 09:33 | Outpatient (CLI) | payer OTHER, SELFPAY ==
--- NOTE | 2023-09-03 | ECHO_ITS ---
Patient Info Name: Mag Luz Age: 48 years : 1975 Gender: Female Ht: 66 in Wt: 320 lbs BSA: 2.69 m2 HR: 98 bpm BP: 129 / 91 mmHg Technical Quality: Fair Exam Date: 09/03/2023 10:02 AM Exam Location: Echo [facility] Patient Status: Outpatient Admit Date: 09/03/2023 Staff Ordering Physician: SamanthaJony MD Body Coverer: Aniya Gonzales RDCS Attending Provider: SamanthaJony MD Exam Type: CA echo doppler color flow Study Info Indications R06.00 - Dyspnea, unspecified Complete two-dimensional, color flow and Doppler transthoracic echocardiogram is performed. Summary 1. Complete two-dimensional, color flow and Doppler transthoracic echocardiogram is performed. 2. Left ventricular chamber dimension is normal. 3. Left ventricular systolic function is normal, estimated at 60-65%. 4. The left ventricular diastolic function is abnormal. 5. E/e' 11 is mildly elevated. 6. There is mild tricuspid valve regurgitation. 7. Moderate pulmonary hypertension, estimated pulmonary arterial systolic pressure is 50 mmHg. Left Ventricle E/e' 11 is mildly elevated. Left ventricular chamber dimension is normal. Left ventricular systolic function is normal, estimated at 60-65%. The left ventricular diastolic function is abnormal. Right Ventricle Right ventricular chamber dimension is normal. Right ventricular systolic function is normal. Left Atria Left atrial chamber dimension is normal. Right Atria Right atrial chamber dimension is normal. Aortic Valve The aortic valve is trileaflet. There is no aortic valve stenosis. There is no aortic valve regurgitation. Pulmonic Valve There is no pulmonic regurgitation. Mitral Valve There is no mitral valve stenosis. There is no mitral valve regurgitation. Tricuspid Valve Moderate pulmonary hypertension, estimated pulmonary arterial systolic pressure is 50 mmHg. There is mild tricuspid valve regurgitation. Pericardium/Pleural There is no pericardial effusion. Inferior Vena Cava Normal inferior vena cava with >50% collapse upon inspiration consistent with normal right atrial pressure, 5 mmHg. Aorta The aortic root size at the sinus of Valsalva is normal. Tricuspid Valve Name Value Normal Estimated PAP/RSVP RA Pressure 5 mmHg <=5 Report Signatures
== END 2023-09-03 09:34 | disposition home or self-care (01) ==
PROVIDERS: PCP Internal Medicine; Visit Provider Internal Medicine
DX: I50.30 Unspecified diastolic (congestive) heart failure (principal); I36.1 Nonrheumatic tricuspid (valve) insufficiency; I27.20 Pulmonary hypertension, unspecified
CPT/HCPCS: 93306

== ENCOUNTER 2023-09-05 16:25 | Emergency (ER) | payer OTHER, SELFPAY ==
[2023-09-05] VITALS (8 sets, daily range): BP systolic 148–166; BP diastolic 33–90; PULSE 96–114; RESP 14–20; O2SAT 98–99
--- NOTE | ~2023-09-05 | XR_ITS ---
EXAMINATION: XR chest 2V DATE: 09/05/2023 17:14 INDICATION: Cough and shortness of breath TECHNIQUE: frontal and lateral views of the chest were obtained. COMPARISON: Chest radiograph dated 07/16/2022 FINDINGS: Interval resolution of the prior patchy airspace opacities in the bilateral lower lung zones. There i s residual small linear band of discoid atelectasis/scarring projecting over the lung bases on the la teral projection, unclear whether left or right-sided . No pulmonary edema, pleural effusion or pneum othorax. The cardiomediastinal silhouette is normal. Mild thoracic spondylosis. IMPRESSION: 1. Mild discoid atelectasis at one of the lung bases on the lateral projection. Reviewed, dictated and finalized at location A.
--- NOTE | ~2023-09-05 | CT_ITS ---
EXAMINATION: CTA chest PE protocol DATE: 09/05/2023 19:58 INDICATION: Shortness of breath and cough TECHNIQUE: Computed tomography (CT) pulmonary angiogram of the chest was performed with 100 mL Omnipa que-350 intravenous contrast. Additional 3D reconstructions utilizing coronal maximum intensity proje ction (MIP) were performed. Automated exposure control and iterative reconstruction technique were em ployed. The dose-length product was 1160.24 mGy-cm. COMPARISON: None FINDINGS: No evident pulmonary embolism. Sensitivity decreased in some of the smaller subsegmental pulmonary ar teries due to suboptimal contrast opacification and patient body habitus. Minimal dependent atelectas is in bilateral lower lobes. No pneumonia, pulmonary edema, pleural effusion or pneumothorax. Heart s ize is normal. No pericardial effusion. Thoracic aorta is normal in caliber with no dissection. No pa thologically enlarged thoracic lymphadenopathy. Diffuse hepatic steatosis. Mild thoracic spondylosis. IMPRESSION: 1. No pulmonary embolism or other acute cardiopulmonary disease. Sensitivity decreased in some of the smaller subsegmental pulmonary arteries due to suboptimal contrast opacification and patient body miranda bitus. Reviewed, dictated and finalized at location A. IMPRESSION: 1. No pulmonary embolism or other acute cardiopulmonary disease. Sensitivity de creased in some of the smaller subsegmental pulmonary arteries due to suboptima l contrast opacification and patient body habitus.
--- NOTE | 2023-09-05 16:47 | ECG_ITS ---
SEE SCANNED COPY FOR CONFIRMED REPORT MTDD
--- NOTE | 2023-09-05 16:48 | ED.SOB ---
HPI - SOB/Dyspnea General Chief Complaint: Shortness of Breath/Dyspnea <Levi Rust, SCIENTIFIC TECHNICAL WRITER - Last Filed: 09/05/23 16:50> Stated Complaint: fighting a lung infection <Levi Rust SCIENTIFIC TECHNICAL WRITER - Last Filed: 09/05/23 16:50> Time Seen by Provider: 09/05/23 17:15 <Levi Rust, SCIENTIFIC TECHNICAL WRITER - Last Filed: 09/05/23 16:50> Focused HPI: GENERAL: Well-appearing, well-nourished, and in no acute distress. HEAD: Normocephalic, atraumatic. CHEST: Clear to auscultation. No respiratory distress. HEART: Regular rate and rhythm. NEURO: Alert and oriented x3. Patient screened in triage and initial orders placed. Additional care and disposition to be based upon diagnostic testing and treatment. 48-year-old female history of factor 5 Leiden, asthma, RA presents emergency room for evaluation of a productive cough for 4 days. Patient was started on doxycycline by her PCP on Sunday. Patient continues to experience productive cough chest congestion. States today she developed some shortness of breath difficulty breathing, and dizziness when ambulatory. Patient states that she took DayQuil once with no improvement of her symptoms. Patient states that she discontinue taking Eliquis 6 months ago. <Levi Rust, SCIENTIFIC TECHNICAL WRITER - Last Filed: 09/05/23 16:50> Focused HPI: GENERAL: Well-appearing, well-nourished, and in no acute distress. HEAD: Normocephalic, atraumatic. CHEST: Clear to auscultation. No respiratory distress. HEART: Regular rate and rhythm. NEURO: Alert and oriented x3. Patient screened in triage and initial orders placed. Additional care and disposition to be based upon diagnostic testing and treatment. 48-year-old female history of factor 5 Leiden, asthma, RA presents emergency room for evaluation of a productive cough for 4 days. Patient was started on doxycycline by her PCP on Sunday. Patient continues to experience productive cough chest congestion. States today she developed some shortness of breath difficulty breathing, and dizziness when ambulatory. Patient states that she took DayQuil once with no improvement of her symptoms. Patient states that she discontinue taking Eliquis 6 months ago. <Bettye Phan PA-C - Last Filed: 09/05/23 21:22> Source: patient <Bettye Phan PA-C - Last Filed: 09/05/23 21:22> Mode of arrival: ambulatory <Bettye Phan PA-C - Last Filed: 09/05/23 21:22> Limitations: no limitations <Bettye Phan PA-C - Last Filed: 09/05/23 21:22> History of Present Illness HPI Narrative: at bedside reports he had cough and low-grade fever earlier this week. Patient denies fevers. Denies lower extremity pain or swelling. Denies chest pain at rest. <Bettye Phan PA-C - Last Filed: 09/05/23 21:22> Related Data Home Medications: Home Medications Medication Instructions Recorded Confirmed celecoxib 200 mg capsule (Celebrex) 100 mg PO BID 02/03/22 10/18/22 hydroxychloroquine 200 mg tablet 400 mg PO DAILY 02/03/22 10/18/22 (Plaquenil) levothyroxine 50 mcg tablet 50 mcg PO DAILY 02/03/22 10/18/22 (Unithroid) losartan 25 mg tablet (Cozaar) 50 mg PO DAILY 02/03/22 10/18/22 metformin 500 mg tablet,extended 1,000 mg PO BID 02/03/22 10/18/22 release 24 hr pantoprazole 40 mg tablet,delayed 40 mg PO BID 02/03/22 10/18/22 release rosuvastatin 20 mg tablet 20 mg PO 2XW 02/03/22 10/18/22 spironolactone 25 mg tablet 50 mg PO DAILY 02/03/22 10/18/22 finerenone 10 mg tablet (Kerendia) 1 mg PO DAILY 07/16/22 10/18/22 melatonin 10 mg tablet 10 mg PO HS 07/16/22 07/16/22 albuterol sulfate 90 mcg/actuation 2 inh inhalation Q4H PRN 08/22/23 aerosol inhaler aspirin 81 mg tablet,delayed 81 mg PO DAILY 08/22/23 release insulin degludec 200 unit/mL (3 115 unit subcut HS 08/22/23 mL) subcutaneous pen (Tresiba FlexTouch U-200 insulin) lidocaine HCl 4 %-menthol 1 % 1 applic topical BID PRN 08/22/23 topical gel (Zylotrol
[2023-09-05 17:07] LABS: Basophils Percent Auto 0.5 % (0.2-1.2); Eosinophils Absolute Auto 0.2 K/mm3 (0-0.3); Eosinophils Percent Auto 2.4 % (0-4.4); Hematocrit 39.4 % (37.0-47.0); Hemoglobin 12.3 g/dL (12.0-15.0); Immature Granulocyte Absolute 0.05 K/mm3 (0.00-0.031); Immature Granulocyte Percent A 0.8 % (0-0.5); Lymphocytes Absolute Auto 1.66 K/mm3 (0.9-3.2); Lymphocytes Percent Auto 26.9 % (18.3-44.2); Mean Corpuscular HGB Conc 31.2 g/dl (32-36); Mean Corpuscular Hemoglobin 25.9 pg (26-34); Mean Corpuscular Volume 82.9 fl (80-100); Mean Platelet Volume 11.1 fl (7.4-10.4); Monocytes Absolute Auto 0.6 K/mm3 (0.1-0.6); Monocytes Percent Auto 9.4 % (2.6-8.5); Neutrophils Absolute Auto 3.7 K/mm3 (1.3-6.7); Platelet Count Result 254 k/mm3 (150-375); Red Blood Count 4.75 M/mm3 (4.2-5.4); Red Cell Distribution Width 14.8 % (11.5-14.5); White Blood Count 6.2 K/mm3 (4.5-10.0)
[2023-09-05 17:16] LABS: Alanine Aminotransferase 26 U/L (6-35); Albumin Level 4.6 g/dL (3.5-5.1); Alkaline Phosphatase 90 U/L (38-126); Anion Gap 12 mmol/L (4-12); Aspartate Amino Transferase 26 U/L (14-36); Bilirubin,Total 0.4 mg/dL (0.2-1.3); Blood Urea Nitrogen 10 mg/dL (7-17); Calcium 10.2 mg/dL (8.4-10.2); Carbon Dioxide 21 mmol/L (22-30); Chloride 106 mmol/L (98-107); Estimated CRCL calculation 166 ml/min; Estimated Glomerular Filt Rate > 60; Glucose 270 mg/dL (65-110); Potassium 3.8 mmol/L (3.4-5.0); Sodium 139 mmol/L (137-145)
[2023-09-05 17:28] LABS: D Dimer 0.28 ug/mL (<0.48); Troponin I < 0.012 ng/mL (0.000-0.034)
[2023-09-05 17:44] LABS: Influenza A QL RT-PCR Negative (Negative); Influenza B QL RT-PCR Negative (Negative); RSV RNA, RT-PCR Negative (Negative); SARS-CoV-2 RNA PCR Negative (Negative)
[2023-09-05] MEDS: IPRATROPIUM BR 0.02% INH SOLN 0.5 MG/2.5 ML VIAL 1.5 MG INHALATION (18:03)
[2023-09-05] MEDS: LEVALBUTEROL NEB 1.25 MG/3 ML 2.5 MG INHALATION (18:03)
[2023-09-05] MEDS: guaiFENesin 12 HR 600 MG TABCR 1200 MG PO (18:15)
[2023-09-05] MEDS: BENZONATATE 100 MG CAPSULE 200 MG PO (18:15)
[2023-09-05] MEDS: methylPREDNISolone SOD SUCC 125 MG VIAL IV PUSH (18:18)
== END 2023-09-05 20:57 | disposition home or self-care (01) ==
PROVIDERS: Nurse Practitioner Family; Emergency Provider Physician Assistant; PCP Internal Medicine
DX: J06.9 Acute upper respiratory infection, unspecified (principal); Z20.822 Contact with and (suspected) exposure to COVID-19; D68.51 Activated protein C resistance; J45.909 Unspecified asthma, uncomplicated; M06.9 Rheumatoid arthritis, unspecified; Z86.718 Personal history of other venous thrombosis and embolism; R94.31 Abnormal electrocardiogram [ECG] [EKG]
CPT/HCPCS: 36415; 71046; 71275; 80053; 84484; 85025; 85380; 87637; 93005; 94640; 96374; 99284; A9270; J2919; Q9967

== ENCOUNTER 2023-10-30 13:30 | Outpatient (RCR) | payer OTHER, SELFPAY ==
[2023-09-18 15:27] VITALS: BMI 57.9
[2023-09-18 15:28] VITALS: BMI 57.9
== END 2023-11-26 09:35 | disposition home or self-care (01) ==
LOC: ANHDMC 13:30
PROVIDERS: PCP Internal Medicine; Visit Provider Internal Medicine
DX: E11.65 Type 2 diabetes mellitus with hyperglycemia (principal); Z71.89 Other specified counseling; Z71.3 Dietary counseling and surveillance
CPT/HCPCS: 97802; G0108

== ENCOUNTER 2023-10-31 08:18 | Outpatient (CLI) | payer OTHER, SELFPAY ==
--- NOTE | 2023-10-31 | EST_ITS ---
Patient Info Name: Mag Luz Age: 48 years : 1975 Gender: Female Ht: 66 in Wt: 330 lbs BSA: 2.73 m2 HR: 80 bpm BP: 126 / 65 mmHg Heart Rhythm: Sinus Rhythm Exam Date: 10/31/2023 9:29 AM Site Location: [facility] Exam Location: 6 Patient Status: Outpatient Admit Date: 10/31/2023 Staff Ordering Physician: Sergio, Jony FARR Attending Provider: Sergio, Jony FARR Exercise Technologist: Katherine Guaman CT Exercise Physician: Adrian Santiago DO Exam Type: CA stress simran w NM Study Info Indications R06.09 - Other forms of dyspnea A regadenoson stress test was performed. Summary 1. 1. Negative lexiscan stress test for ischemic ST changes by ECG criteria. 2. 2. Stable hemodynamics throughout the test. 3. 3. Nuclear scan to follow and will be reported separately. Please correlate with it. 4. 4. Patient informed of the above results. Protocol: Lexiscan Stress ECG Details Stage: REST Duration (min): 1 min : 7 sec HR (bpm): 82 SBP (mmHg): 126 DBP (mmHg): 65 Stage: REST Duration (min): 7 min : 57 sec HR (bpm): 78 SBP (mmHg): 126 DBP (mmHg): 65 Stage: STAGE 1 Duration (min): 1 min : 0 sec HR (bpm): 90 SBP (mmHg): 121 DBP (mmHg): 75 Stage: RECOVERY Duration (min): 1 min : 0 sec HR (bpm): 88 SBP (mmHg): 121 DBP (mmHg): 75 Stage: RECOVERY Duration (min): 2 min : 0 sec HR (bpm): 85 SBP (mmHg): 121 DBP (mmHg): 75 Stage: RECOVERY Duration (min): 2 min : 51 sec HR (bpm): 87 SBP (mmHg): 121 DBP (mmHg): 73 Rest HR: 78 bpm Peak HR: 95 bpm Rest Sys BP: 126 mmHg Peak Sys BP: 121 mmHg Max Pred HR: 171 bpm % Max Pred HR: 56 % Target HR: 145 bpm Max RPP: 11,495 bpm*mmHg Termination Reason: Completed protocol Cardiac Symptoms: Shortness of breath Total Time: 1 min : 0 sec Rest Holley BP: 65 mmHg Peak Holley BP: 75 mmHg Total Dose: 0.4 mg Resting ECG Sinus rhythm. Stress ECG No ST changes. Arrhythmias None. Report Signatures
--- NOTE | ~2023-10-31 | NM_ITS ---
EXAMINATION: NM simran stress w perfusion DATE: 10/31/2023 11:01 INDICATION: Dizziness and exertion. TECHNIQUE: Rest images were obtained following intravenous administration of 9.2 mCi Tc99m tetrofosmi n (Myoview). The patient was infused intravenously with Lexiscan (regadenoson). Then, 29.4 mCi Tc99m tetrofosmin (Myoview) was administered intravenously, and stress images were obtained. Data was recon structed into short axis and horizontal and vertical long axis SPECT images. Gated SPECT images were also obtained. COMPARISON: None. FINDINGS: There is no definite reversible or fixed perfusion abnormality to suggest ischemia or infar ction. There is no segmental wall motion abnormality. Left ventricular ejection fraction measures 6 0%. IMPRESSION: 1. No definite ischemia or infarct. 2. Normal left ventricular ejection fraction measuring 60%. Reviewed, dictated and finalized at location A.
== END 2023-10-31 08:19 | disposition home or self-care (01) ==
PROVIDERS: PCP Internal Medicine; Visit Provider Internal Medicine
DX: R06.09 Other forms of dyspnea (principal)
CPT/HCPCS: 78452; 93017; A9502; J2785

== ENCOUNTER 2023-11-09 12:36 | Outpatient (CLI) | payer OTHER, SELFPAY ==
--- NOTE | 2023-11-09 15:27 | WPDSIXMINUTE ---
Six Minute Walk Procedure Procedure Performed Pulmonary Stress Test (6 min walk) Six Minute Walk Six Minute Walk: This is a 6 minute walk test. The test was performed and interpreted in accordance with the 2014 ERS/ATS task force guidelines. Findings: The patient's resting room air oxygen saturation measured by pulse oximetry was 98% and heart rate was 85 bpm. Patient ambulated for 305 meters and oxygen saturation remained 97%. Heart rate at the end of the study was 112 bpm. The patient did not qualify for supplemental oxygen at rest or with ambulation. There are no prior studies for comparison.
--- NOTE | 2023-11-09 15:30 | WPDPFTINT ---
PFT Procedure Performed PFT Procedure Performed Spirometry with Pre/Post Bronchodilator Plethysmography (Lung Vol) Diffusing Cap (DLCO) Flow Vol Loop PFT Interpretation This is a pulmonary function test with pre and post-bronchodilator spirometry, plethysmography and diffusing capacity. The test was performed and results interpreted in accordance with the 2019 and 2005 ATS/ERS Task Force guidelines respectively using the Global Lung Function Initiative-2012 reference equations. Patient demonstrated good effort and cooperation. Reproducibility criteria were met. The quality of the pre bronchodilator spirometry maneuver was Grade B and post bronchodilator spirometry maneuver was Grade B. Findings: Spirometry: The contour the inspiratory and expiratory flow tracing are normal. The pre bronchodilator FVC is 3.21 L, 86% predicted. The pre bronchodilator FEV1 is 2.58 L, 86% predicted. The pre bronchodilator FEV1: FVC ratio was 80%. The post bronchodilator FVC is 3.02 L, representing a 6% decrease. The post bronchodilator FEV1 is 2.57 L, representing 1% decrease. The post bronchodilator FEV1: FVC ratio is 85%. Plethysmography: The total lung capacity is 4.39 L, 82% predicted. The functional residual capacity is 1.37 L, 45% predicted. The residual volume is 1.18 L, 63% predicted. Diffusing capacity: The diffusing capacity unadjusted for hemoglobin and carboxyhemoglobin is 22.2, 94% predicted. The diffusing capacity adjusted for alveolar volume is 5.43, 120% predicted. Impression: The spirometry is normal without evidence of an obstructive abnormality. There is no significant improvement after inhaling a single dose of albuterol. The total lung capacity and residual volume are normal with a decreased functional residual capacity. This is an abnormal but nonspecific lung volume pattern. The diffusing capacity is normal. There are no prior studies for comparison
== END 2023-11-09 12:37 | disposition home or self-care (01) ==
LOC: ANHPFT 12:37
PROVIDERS: PCP Internal Medicine; Visit Provider Physician Assistant
DX: I27.21 Secondary pulmonary arterial hypertension (principal)
CPT/HCPCS: 94060; 94618; 94726; 94729

== ENCOUNTER 2023-11-28 09:47 | Outpatient (CLI) | payer OTHER, SELFPAY ==
--- NOTE | 2023-12-18 09:17 | WPDSLEEPSTUD ---
Sleep Study Date of Study: 11/28/23 Ordering Provider: FAHAD Rivera Interpreting Physician: Mag Tomlinson DO Sleep Study Type: Split Polysomnogram Height: 1.68 m Weight: 149.685 kg Body Mass Index: 53.2 Neck Circumference (inches): 22 [place]: 8 Reason for Sleep Study Multiple nighttime awakenings, new onset pulmonary hypertension Sleep History The patient is a 48 old female that had a sleep study for evaluation of sleep apnea. 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 She denies awakening from sleep short of breath. She rarely her, belching or. She rarely snores and is never loud enough others. She rarely has trouble sleeping when she has a cold. She denies waking up gasping for air throughout the day. She frequently has breathing problems at night observed by herself or others. She denies sweating excessively. She frequently has heart palpitations or irregular heartbeats during the day. She occasionally falls asleep during the day and occasionally falls asleep driving. She denies sleep paralysis cataplexy. She occasionally has trouble at school or work due to sleepiness. She rarely experiences vivid dreamlike scenes upon awakening or falling asleep. She denies nightmares. She occasionally remembers her dreams. She frequently has thoughts racing through her mind. She frequently feels sad or depressed. She constantly has anxiety. She occasionally has muscular tension she rarely notices parts of jerk. She denies taking during the day. She frequently has crawling and aching feelings in her legs. She frequently has leg pain during the night. She rarely grinds her teeth during sleep but never awakens with morning jaw pain she is constantly bothered by pain during day occasionally by pain during. She constantly wakes up feeling stiff in the morning. She frequently wakes with sore or achy muscles she constantly wakes up in the neck spine have joints. She does bed at midnight weekdays and at takes 2 hours to fall asleep. She wakes 3-4 times throughout the night to urinate and take 30-60 minutes to fall back asleep. She wakes up at 7:00 a.m. on weekdays and 8:00 a.m. on weekends. She typically is 46 hours of sleep per night. She will stay in bed for 1 hour after waking up. She currently lives with her and child. She denies consuming any caffeinated beverages 2 hours bedtime. She denies engaging physical exercise bedtime. She will read before falling asleep. She will take naps occasionally in the afternoon or the evening but they are not refreshing. She consumes 1-2 cups caffeinated beverage per day. She will occasionally consumes alcoholic beverage. She denies tobacco and recreational drug use. [facility] Past Medical History Medical History Deep venous thrombosis Attributed to hormone use in the setting of factor 5 Leiden mutation, heterozygous. Factor 5 Leiden mutation, heterozygous Gastroesophageal reflux disease Noeren's disease Hypothyroidism Insulin dependent type 2 diabetes mellitus Morbid obesity Polycystic ovarian syndrome Pulmonary arterial hypertension Rheumatoid arthritis Screening mammogram, encounter for Surgical History Surgical History History of cardiac radiofrequency ablation (~1992) 1992 and 1993 History of section (~1998) Family History Family History Father Acute myocardial infarction Squamous cell carcinoma Grandparent Cerebrovascular accident maternal grandmother Mother Squamous cell carcinoma Eaton-Lambert syndrome Other Depression Diabetes mellitus Family history of alcoholism Family history of attention deficit hyperactivity disorder (ADHD) Family history of blood dyscrasia Family history of cardiovascular disease Family history of obesity Heart disease Social Hi
[2023-12-18 10:39] VITALS: BMI 53.2
== END 2023-11-29 07:00 | disposition home or self-care (01) ==
LOC: ANHCSM 09:47
PROVIDERS: PCP Internal Medicine; Visit Provider Physician Assistant
DX: G47.33 Obstructive sleep apnea (adult) (pediatric) (principal); G47.10 Hypersomnia, unspecified; I27.21 Secondary pulmonary arterial hypertension
CPT/HCPCS: 95811